=== PATIENT | male | born 1940 | race Caucasian/White ===

== ENCOUNTER 2016-10-07 08:51 | Day surgery (SDC) | payer MEDICARE, OTHER ==
[2016-10-05 10:50] VITALS: BMI 22.8
[~2016-10-07 08:51] MED LIST: HEPARIN SODIUM,PORCINE 5,000 UNIT/ML 1 ML VIAL SQ ONE; HYDROmorphone 1 MG/ML 1 ML SYRINGE IVP PRN; LACTATED RINGERS 1,000 ML IV SCH; MIDAZOLAM 2 MG/2 ML VIAL IV PRN; ONDANSETRON 4 MG/2 ML VIAL IVP ONE; ceFAZolin 2 GM in SODIUM CHLORIDE 0.9% 100 ML IVPB ONE
[2016-10-07] MEDS ORDERED: FAMOTIDINE 20 MG/2 ML VIAL IV STA (09:09)
[2016-10-07] MEDS ORDERED: LIDOCAINE 1% 20 ML VIAL (10MG/ML) FOR IV START INTRADERMA ONE (09:14)
[2016-10-07] MEDS ORDERED: PROPOFOL 10 MG/ML 20 ML VIAL IV ONE (09:35)
[2016-10-07] MEDS ORDERED: MIDAZOLAM 2 MG/2 ML VIAL ONE (09:35)
[2016-10-07] MEDS ORDERED: GLYCOPYRROLATE 0.2 MG/ML 2 ML VIAL ONE (09:35)
[2016-10-07] MEDS ORDERED: fentaNYL (PF) 50 MCG/ML 2 ML AMP ONE (09:35)
[2016-10-07] MEDS ORDERED: SUCCINYLCHOLINE CHLORIDE 100 MG/5 ML SYR IV ONE (09:35)
[2016-10-07] MEDS ORDERED: NEOSTIGMINE 1 MG/ML 10 ML VIAL ONE (09:35)
[2016-10-07] MEDS ORDERED: ROCURONIUM BROMIDE 10 MG/ML 10 ML VIAL IV ONE (09:35)
[2016-10-07] MEDS ORDERED: LIDOCAINE 1% INJ 10MG/ML (20 ML MDV) ONE (09:35)
[2016-10-07] MEDS ORDERED: ePHEDrine 50 MG/ML 1 ML AMP ONE (09:35)
[2016-10-07] MEDS ORDERED: BUPIVACAIN-EPI 0.25%-1:200,000 30 ML VIAL SQ ONE (09:59)
[2016-10-07 10:48] VITALS: TEMP 97.4
[2016-10-07] MEDS ORDERED: HYDROcodone/APAP 5-325MG 1 EACH TAB PO ONE (11:47)
[2016-10-07 12:24] VITALS: BP 134/70; PULSE 82; RESP 18
--- NOTE | 2016-10-07 18:15 | P.OP ---
Date of Procedure: 10/07/16 Preoperative Diagnosis: Symptomatic cholelithiasis History of right nephrectomy Bladder incontinence Postoperative Diagnosis: Same Procedure(s) Performed: Laparoscopic cholecystectomy Implants: NA Anesthesia: MOSHEA, local Surgeon: Yarelis Mann Estimated Blood Loss (ml): 5 Pathology: other Condition: stable Disposition: PACU Indications for Procedure: 76 years old male presents with intermittent episodes of right upper quadrant pain. Ultrasound showed stones versus sludge versus gallbladder polyps. Informed consent obtained and patient elected to undergo laparoscopic cholecystectomy possible open. The risks, benefits and potential complications including bleeding, infection, inadvertent bile duct injury were discussed and patient elected to undergo the procedure. Operative Findings: Omental adhesions along the right subcostal incision. Chronic cholecystitis. Description of Procedure: The patient was brought to the operating room and placed in supine position with both arms out. General anesthesia with endotracheal intubation was performed as per anesthesia team. Chlorhexidine was used to prep the abdomen followed by application of sterile drapes. A timeout was performed to verify correct patient and correct procedure. Patient was confirmed to receive perioperative IV antibiotics , heparin 5000 units subcutaneous injection and bilateral SCDs were placed. A 5 mm skin incision was made below the left costal margin at the anterior axillary line. A Veress needle was inserted and pneumoperitoneum was established to a pressure of 15 mmHg. A 5 mm Optiview trocar was loaded on a 5 mm 30 laparoscope and the peritoneal cavity was entered under direct vision using the Optiview technique. Additional 5 mm trocar was placed in the supraumbilical location and two 5 mm trocars along the right subcostal margin. The left 5 mm trocar was upsized to 10mm. The patient was placed in reverse Trendelenburg with right side up. There were omental dictations underneath the right subcostal incision which were taken down using a L-hook. The fundus of the gallbladder was grasped with an atraumatic grasper and was retracted over the dome of the liver. The infundibulum was grasped with an atraumatic grasper and retracted towards the pelvis to expose the Calot's triangle. Lateral and medial peritoneal attachment of the gallbladder bladder was dissected. Circumferential dissection was carried out around the cystic artery and the cystic duct to obtain adequate length for clip application. All the surrounding fibrofatty tissue were removed. Critical view was obtained with cystic duct and cystic artery as the only two structures entering the gallbladder. Two clips were applied on the patient's side and one on the specimen side on the cystic duct first followed by the cystic artery. Endoshears were used to divide the cystic duct and the cystic artery. The gallbladder was taken off the liver bed using a L-hook. It was placed in an endocatch specimen bag and removed through the 10mm port. The gallbladder was passed off as a specimen. The abdominal cavity was inspected. The clips on the cystic duct and cystic artery stump were intact and no bleeding noted from the liver bed. All the trocar sites were examined and no evidence of bleeding. The 10mm port site was closed with two transfascial sutures of 0 Vicryl using a Jorge Tawnya device. The pneumoperitoneum was evacuated and all the trocars were removed. Local anesthetic was infiltrated along the trocar sites and incisions were closed using 4-0 Monocryl followed by application of Dermabond skin glue. The sponge, instrument and needle count were correct x2. Patient was extubated and taken to post anesthesia care unit in stable condition.
== END 2016-10-07 13:12 | disposition home or self-care (01) ==
LOC: OR 08:51
PROVIDERS: ATTEND Surgery
DX: K81.1 Chronic cholecystitis (principal); I10 Essential (primary) hypertension; Z87.891 Personal history of nicotine dependence; Z90.5 Acquired absence of kidney; Z85.528 Personal history of other malignant neoplasm of kidney; Z79.1 Long term (current) use of non-steroidal anti-inflammatories (NSAID); Z79.899 Other long term (current) drug therapy
CPT/HCPCS: 88304; 47562; J2250; J1644; J2710; J0690; J2405; J2001; J3010; J0330; J2704

== ENCOUNTER 2017-05-30 13:07 | Emergency (ER) | payer MEDICARE, OTHER ==
[2017-05-30] MEDS ORDERED: SODIUM CHLORIDE 0.9% 1,000 ML IV STA (13:41)
[2017-05-30] MEDS ORDERED: HYDROmorphone 1 MG/ML 1 ML SYRINGE IVP STA (13:41)
[2017-05-30] MEDS ORDERED: PANTOPRAZOLE 40 MG/10 ML VIAL IVP STA (13:41)
[2017-05-30] MEDS ORDERED: ONDANSETRON 4 MG/2 ML VIAL IVP STA (13:41)
[2017-05-30] MEDS ORDERED: SODIUM CHLORIDE 0.9% 500 ML IV STA (13:41)
[2017-05-30] MEDS ORDERED: RX INFO: IV CONTRAST WAS GIVEN 1 EACH MISC MISCELLANE PRN (13:41)
--- NOTE | 2017-05-30 13:45 | ED ---
Abdominal Pain HPI - General Chief Complaint: Abdominal Pain Stated Complaint: Abd Pain Time Seen by Provider: 05/30/17 13:34 Source: patient, family Mode of arrival: wheelchair Limitations: no limitations - History of Present Illness Initial Comments: This 77-year-old white male presents with his nephew with the complaint of some abdominal pain. It is diffuse and moderately severe in nature and started approximately 1 hour prior to arrival. He denies any nausea, vomiting, diarrhea , or constipation. He denies any known fevers. He apparently has had some similar but much less severe symptoms intermittently over the past 2 weeks. This does not seem to correlate with food intake. He apparently does have a history of previous cholecystectomy in September of this year as well as a prior nephrectomy. No other complaints or modifying factors. - Related Data Home Medications Medication Instructions Recorded Confirmed Lisinopril-Hctz 20-12.5 mg 1 tab PO DAILY 05/07/15 05/30/17 [Zestoretic 20-12.5] Simvastatin [Zocor] 20 mg PO HS 05/07/15 05/30/17 Multivit-Min/FA/Lycopen/Lutein 1 tab PO DAILY 10/05/16 05/30/17 [Centrum Silver Tablet] Previous Rx's Medication Instructions Recorded Dicyclomine [Bentyl] 20 mg PO QID PRN #20 tablet 05/30/17 Allergies Allergy/AdvReac Type Severity Reaction Status Date / Time No Known Allergies Allergy Verified 05/30/17 14:57 Review of Systems ROS Statement: Those systems with pertinent positive or pertinent negative responses have been documented in the HPI. ROS Other: All systems not noted in ROS Statement are negative. Past Medical History Past Medical History: Cancer, Hypertension, Prostate Disorder Additional Past Medical History / Comment(s): hx bladder cancer, unexplained wt loss, gallstones, gout, hx kidney cancer, enlarged prostate History of Any Multi-Drug Resistant Organisms: None Reported Past Surgical History: Cholecystectomy Additional Past Surgical History / Comment(s): rt nephrectomy, cystoscopy Past Anesthesia/Blood Transfusion Reactions: No Reported Reaction Past Psychological History: Anxiety Smoking Status: Former smoker Past Alcohol Use History: Daily Past Drug Use History: None Reported - Past Family History Brother(s) Family Medical History: Cancer General Exam - General Exam Comments Initial Comments: GENERAL: The patient is well nourished and well hydrated. VITAL SIGNS: Heart rate, blood pressure, respiratory rate reviewed as recorded in nurse's notes. EYES: Pupils are round and reactive. Extraocular movements are intact. No conjunctival / lid redness or swelling. ENT: No external evidence of injury, swelling, or ecchymosis. Airway is patent. Throat is clear. NECK: Nontender. No swelling or evidence of injury. No subcutaneous emphysema. Trachea is midline. No thyroid mass. HEART: Regular rate and rhythm. Good peripheral pulses. LUNGS/CHEST: Breath sounds clear and equal bilaterally. No rales, rhonchi, or wheezes. No ecchymosis, subcutaneous emphysema, or tenderness. ABDOMEN: There is some mild diffuse abdominal tenderness. No palpable masses or organomegaly. No peritoneal signs. No abdominal wall swelling or ecchymosis. EXTREMITIES: No extremity tenderness. Normal muscle tone and function. No thoracolumbar tenderness. NEUROLOGIC: Sensation is grossly intact. Cranial nerve exam reveals face is symmetrical, tongue is midline, speech is clear. SKIN: No abrasions or ecchymosis is noted. No induration or masses noted. PSYCHIATRIC: Alert and oriented. Appears slightly anxious. Limitations: no limitations Course Vital Signs 05/30/17 05/30/17 05/30/17 13:16 14:56 16:00 Temperature 96.9 F L Pulse Rate 95 64 63 Respiratory 16 18 16 Rate Blood Pressure 131/68 138/65 124/72 O2 Sat by Pulse 99 96 98 Oximetry Medical Decision Making - Medical Decision Making The patient was seen and examined. All diagnostics were reviewed. An IV is established and he receives Dilaudid, Zofran, and Protonix intravenously. The EKG shows a normal sinus rhythm at a rate of 71. There is no acute ST-T wave changes identified. The [place] interval is 160, QRS duration is 78, and the QTc interval is 423. The laboratory shows some mild renal insufficiency but the patient has had previous nephrectomy. The computed tomography scan was therefore done without contrast and this does show some prostatic hypertrophy but otherwise no acute process is noted. His abdominal pain is completely resolved with 0.5 mg of Dilaudid and on recheck he is nontender. He states that he feels much improved. The exact cause of his symptoms are not definitively determined. Nevertheless, it is felt as though he is stable for discharge home. He has an appointment with his doctor tomorrow. - Lab Data Result diagrams: 05/30/17 14:05 05/30/17 14:05 Lab Results 05/30/17 05/30/17 05/30/17 Range/Units 14: 14: 14:05 WBC 7.8 (3.8-10.6) k/uL RBC 4.99 (4.30-5.90) m/uL Hgb 15.5 (13.0-17.5) gm/dL Hct 43.7 (39.0-53.0) % MCV 87.5 (80.0-100.0) fL MCH 31.1 (25.0-35.0) pg MCHC 35.6 (31.0-37.0) g/dL RDW 12.3 (11.5-15.5) % Plt Count 250 (150-450) k/uL Neutrophils % 71 % Lymphocytes % 17 % Monocytes % 6 % Eosinophils % 3 % Basophils % 1 % Neutrophils # 5.5 (1.3-7.7) k/uL Lymphocytes # 1.3 (1.0-4.8) k/uL Monocytes # 0.5 (0-1.0) k/uL Eosinophils # 0.2 (0-0.7) k/uL Basophils # 0.1 (0-0.2) k/uL PT 10.9 (9.0-12.0) sec INR 1.1 (<1.2) APTT 25.2 (22.0-30.0) sec Sodium 134 L (137-145) mmol/L Potassium 4.3 (3.5-5.1) mmol/L Chloride 99 (98-107) mmol/L Carbon Dioxide 23 (22-30) mmol/L Anion Gap 12 mmol/L BUN 20 (9-20) mg/dL Creatinine 1.30 H (0.66-1.25) mg/dL Est GFR (MDRD) Af Amer >60 (>60 ml/min/1.73 sqM) Est GFR (MDRD) Non-Af 54 (>60 ml/min/1.73 sqM) Glucose 92 (74-99) mg/dL Plasma Lactic Acid Michael (0.7-2.0) mmol/L Calcium 9.3 (8.4-10.2) mg/dL Total Bilirubin 1.4 H (0.2-1.3) mg/dL AST 21 (17-59) U/L ALT 29 (21-72) U/L Alkaline Phosphatase 54 (38-126) U/L Total Protein 6.7 (6.3-8.2) g/dL Albumin 4.4 (3.5-5.0) g/dL Amylase 65 (30-110) U/L Lipase 167 (23-300) U/L Urine Color Urine Appearance (Clear) Urine pH (5.0-8.0) Ur Specific [place] (1.001-1.035) Urine Protein (Negative) Urine Glucose (UA) (Negative) Urine Ketones (Negative) Urine Blood (Negative) Urine Nitrite (Negative) Urine Bilirubin (Negative) Urine Urobilinogen (<2.0) mg/dL Ur Leukocyte Esterase (Negative) Urine RBC (0-5) /hpf Urine WBC (0-5) /hpf Urine Mucus (None) /hpf 05/30/17 05/30/17 Range/Units 14:05 14:05 WBC (3.8-10.6) k/uL RBC (4.30-5.90) m/uL Hgb (13.0-17.5) gm/dL Hct (39.0-53.0) % MCV (80.0-100.0) fL MCH (25.0-35.0) pg MCHC (31.0-37.0) g/dL RDW (11.5-15.5) % Plt Count (150-450) k/uL Neutrophils % % Lymphocytes % % Monocytes % % Eosinophils % % Basophils % % Neutrophils # (1.3-7.7) k/uL Lymphocytes # (1.0-4.8) k/uL Monocytes # (0-1.0) k/uL Eosinophils # (0-0.7) k/uL Basophils # (0-0.2) k/uL PT (9.0-12.0) sec INR (<1.2) APTT (22.0-30.0) sec Sodium (137-145) mmol/L Potassium (3.5-5.1) mmol/L Chloride (98-107) mmol/L Carbon Dioxide (22-30) mmol/L Anion Gap mmol/L BUN (9-20) mg/dL Creatinine (0.66-1.25) mg/dL Est GFR (MDRD) Af Amer (>60 ml/min/1.73 sqM) Est GFR (MDRD) Non-Af (>60 ml/min/1.73 sqM) Glucose (74-99) mg/dL Plasma Lactic Acid Michael 1.4 (0.7-2.0) mmol/L Calcium (8.4-10.2) mg/dL Total Bilirubin (0.2-1.3) mg/dL AST (17-59) U/L ALT (21-72) U/L Alkaline Phosphatase (38-126) U/L Total Protein (6.3-8.2) g/dL Albumin (3.5-5.0) g/dL Amylase (30-110) U/L Lipase (23-300) U/L Urine Color Yellow Urine Appearance Clear (Clear) Urine pH 5.5 (5.0-8.0) Ur Specific [place] 1.009 (1.001-1.035) Urine Protein Negative (Negative) Urine Glucose (UA) Negative (Negative) Urine Ketones 1+ H (Negative) Urine Blood Negative (Negative) Urine Nitrite Negative (Negative) Urine Bilirubin Negative (Negative) Urine Urobilinogen <2.0 (<2.0) mg/dL Ur Leukocyte Esterase Trace H (Negative) Urine RBC 1 (0-5) /hpf Urine WBC 3 (0-5) /hpf Urine Mucus Rare H (None) /hpf Disposition Clinical Impression: Abdominal pain, Prostatic hypertrophy, Renal insufficiency Disposition: HOME SELF-CARE Condition: Good Instructions: Abdominal Pain (ED), Benign Prostatic Hypertrophy (ED) Prescriptions: Dicyclomine [Bentyl] 20 mg PO QID PRN #20 tablet PRN Reason: Pain Referrals: Forrest Edmondson MD [Primary Care Provider] - 1-2 days Time of Disposition: 17:03
[2017-05-30 14:41] LABS: Appearance,Urine Clear (Clear); Bilirubin,Urine Negative (Negative); Glucose,Urine (UA) Negative (Negative); Ketones,Urine 1+ (Negative); Leukocyte Esterase,Urine Trace (Negative); Mucus,Urine Rare /hpf; Nitrite,Urine Negative (Negative); PH, Urine 5.5 (5.0-8.0); Particle Count 1226; Protein,Urine Negative (Negative); RBC,Urine 1 /hpf (0-5); Specific Gravity,Urine 1.009 (1.001-1.035); UA Billing (MACRO vs. MICRO) MICRO; Urobilinogen,Urine <2.0 mg/dL (<2.0); WBC,Urine 3 /hpf (0-5)
[2017-05-30 14:45] LABS: ALT 29 U/L (21-72); AST 21 U/L (17-59); Alkaline Phosphatase 54 U/L (38-126); Amylase 65 U/L (30-110); Anion Gap 12 mmol/L; Blood Urea Nitrogen 20 mg/dL (9-20); Calcium 9.3 mg/dL (8.4-10.2); Carbon Dioxide 23 mmol/L (22-30); Chloride 99 mmol/L (98-107); Glucose 92 mg/dL (74-99); Non-African American GFR(MDRD) 54 (>60 ml/min/1.73 sqM); Potassium 4.3 mmol/L (3.5-5.1); Sodium 134 mmol/L (137-145); Total Bilirubin 1.4 mg/dL (0.2-1.3); Total Protein 6.7 g/dL (6.3-8.2)
[2017-05-30 14:46] LABS: Basophils # (A) 0.1 k/uL (0-0.2); Basophils % (A) 1 %; CH 31.1; CHCM 35.6; Eosinophils # (A) 0.2 k/uL (0-0.7); Eosinophils % (A) 3 %; HCT 43.7 % (39.0-53.0); HDW 2.46; HGB 15.5 gm/dL (13.0-17.5); Luc # (Auto) 0.26; Luc % (Auto) 3; Lymphocytes # (A) 1.3 k/uL (1.0-4.8); Lymphocytes % (A) 17 %; MCH 31.1 pg (25.0-35.0); MCHC 35.6 g/dL (31.0-37.0); MCV 87.5 fL (80.0-100.0); Mean Platelet Volume 7.2; Monocytes # (A) 0.5 k/uL (0-1.0); Monocytes % (A) 6 %; Neutrophils # (A) 5.5 k/uL (1.3-7.7); Neutrophils % (A) 71 %; RBC 4.99 m/uL (4.30-5.90); RDW 12.3 % (11.5-15.5); WBC 7.8 k/uL (3.8-10.6); WBC (Perox) 7.62
[2017-05-30 14:49] LABS: Partial Thromboplastin Time 25.2 sec (22.0-30.0)
[2017-05-30 14:51] LABS: INR 1.1 (<1.2); Prothrombin Time 10.9 sec (9.0-12.0)
--- NOTE | 2017-05-30 15:58 | CT ---
EXAMINATION TYPE: CT abdomen pelvis wo con DATE OF EXAM: 05/30/2017 COMPARISON: NONE INDICATION: Patient complains of generalized abdominal pain x3 hours. DLP: 639 mGycm, Automated exposure control for dose reduction was used. CONTRAST: No IV Study performed without Oral Contrast TECHNIQUE: Axial images were obtained from above the diaphragm to the pubic rami in the axial plane a t 5 mm thick sections. Reconstructed images are reviewed on the computer in the coronal plane. FINDINGS: Limited CT sections are obtained the lung bases. The lung bases are clear. CT ABDOMEN: Liver: Normal Spleen: Normal Pancreas: Normal Adrenal glands: The adrenal glands are normal. Gallbladder: Surgically absent Kidneys: Right kidney is surgically absent. No suspicious recurrent masses are evident within this re gion.. Left kidney: No hydronephrosis is present. There is a 1.2 cm cyst on the posterior superior left ki dney measuring 3 Hounsfield units. Some ill-defined hypodensity is at the inferior pole posteriorly a t the left kidney Aorta: Vascular calcification is within the aorta. Inferior vena cava: Normal. CT PELVIS: Loops of bowel within the abdomen and pelvis are normal. Study is without oral contrast limiting the evaluation. Appendix: Not identified. Urinary bladder: Normal. Prostate is impression on the inferior aspect of the urinary bladder Genitourinary structures: Prostate is markedly enlarged and contains calcification. Osseous structures: No suspicious lytic or sclerotic lesions. Sclerotic lesions are within the medial right iliac wing, the anterior L4 level. IMPRESSIONS: 1. Absent right kidney. 2. Marked prominence prostate.
[2017-05-30 17:21] VITALS: BP 125/80; PULSE 73; RESP 18; TEMP 97.3
== END 2017-05-30 17:20 | disposition home or self-care (01) ==
LOC: EC 13:07
DX: N40.0 Benign prostatic hyperplasia without lower urinary tract symptoms (principal); N28.9 Disorder of kidney and ureter, unspecified; I10 Essential (primary) hypertension; Z85.528 Personal history of other malignant neoplasm of kidney; Z90.49 Acquired absence of other specified parts of digestive tract; Z90.5 Acquired absence of kidney; Z79.899 Other long term (current) drug therapy; Z87.891 Personal history of nicotine dependence
CPT/HCPCS: 99284; 96374; 96375 ×2; 96361 ×3; 36415; 93005; 80053; 82150; 83605; 83690; 85025; 85610; 85730; 81001; 74176; J2405; J1170; C9113

== ENCOUNTER → 2018-04-02 | Outpatient (CLI) | payer MEDICARE ==
--- NOTE | 2018-04-02 19:24 | ECHOS ---
STRESS ECHOCARDIOGRAM DATE OF SERVICE: 04/02/[address] Edmondson. INDICATIONS: Chest pain. MEDICATIONS: See list. BASELINE HEART RATE: 75 BASELINE BLOOD PRESSURE: 124/80 MAXIMUM HEART RATE: 101 MAXIMUM BLOOD PRESSURE: 124/80 85% MPHR: 121 100% MPHR: 142 METS: 2.0 MAXIMUM STAGE REACHED: I TOTAL EXERCISE TIME: 2:30 CLINICAL INFORMATION: Baseline heart rate 75 beats per minute. Baseline blood pressure 124/80 mmHg. Baseline 12-lead ECG shows normal sinus rhythm with normal cardiac intervals. Patient exercised on a Darinel protocol for 2 minutes 30 seconds achieving a peak heart rate of 101 beats per minute. There was no ECG evidence for ischemia. No arrhythmias were noted. Baseline 2D echo images showed normal LV size and systolic function without segmental wall motion abnormalities. At peak exercise, there was excellent augmentation of overall LV contractility without developing any wall motion abnormalities. At recovery, no regional wall motion abnormalities were noted. PVCs were noted at recovery. IMPRESSION: Limited exercise capacity. No ECG evidence for ischemia based upon the ECG and echo images at this low workload level. Occasional PVCs noted. MMODL / IJN: [id number] /
== END | disposition home or self-care (01) ==
LOC: RADNMMAIN 08:56
PROVIDERS: ATTEND Family Medicine
DX: R07.9 Chest pain, unspecified (principal)
CPT/HCPCS: 93351

== ENCOUNTER 2018-04-21 07:50 | Emergency (ER) | payer MEDICARE, OTHER ==
[2018-04-21] MEDS ORDERED: methylPREDNISolone SOD SUCCI 125 MG/2 ML VIAL IV STA (08:34)
[2018-04-21] MEDS ORDERED: diphenhydrAMINE 50 MG/ML 1 ML VIAL IVP STA (08:35)
--- NOTE | 2018-04-21 09:05 | ED ---
ENT HPI - General Chief complaint: Dental/Oral Stated complaint: Facial Swelling Time Seen by Provider: 04/21/18 08:22 Source: patient, RN notes reviewed, old records reviewed Mode of arrival: ambulatory Limitations: no limitations - History of Present Illness Initial comments: This Patient is a 70-year-old male with chief complaint of upper lip and right cheek swelling this morning. Patient reports that he has no specific dental pain. Denies any new dental caries or abscesses Sorenson teeth. Patient states that he has been on lisinopril for many years. He does have history of one kidney. Patient also complains of pain and swelling into the left foot, ankle and great toe. He does have a history of gout. He did see his PCP on and was told it is most likely due to increased salt intake. He is currently maintained on [place] for gout treatment. Patient denies any recent fever, chills, shortness of breath, chest pain, back pain, abdominal pain, nausea vomiting, numbness or tingling, dysuria or hematuria, constipation or diarrhea, headaches or visual changes, or any other current symptoms - Related Data Home Medications Medication Instructions Recorded Confirmed Lisinopril-Hctz 20-12.5 mg 1 tab PO DAILY 05/07/15 05/30/17 [Zestoretic 20-12.5] Simvastatin [Zocor] 20 mg PO HS 05/07/15 05/30/17 Multivit-Min/FA/Lycopen/Lutein 1 tab PO DAILY 10/05/16 05/30/17 [Centrum Silver Tablet] Previous Rx's Medication Instructions Recorded Dicyclomine [Bentyl] 20 mg PO QID PRN #20 tablet 05/30/17 Ibuprofen 400 mg PO TID #15 tablet 04/21/18 methylPREDNISolone Dose Pack 4 mg PO DIRECTED #21 package 04/21/18 [Medrol Dose Pack] Allergies Allergy/AdvReac Type Severity Reaction Status Date / Time No Known Allergies Allergy Verified 04/21/18 08:08 Review of Systems ROS Statement: Those systems with pertinent positive or pertinent negative responses have been documented in the HPI. ROS Other: All systems not noted in ROS Statement are negative. Past Medical History Past Medical History: Cancer, Hypertension, Prostate Disorder Additional Past Medical History / Comment(s): hx bladder cancer, unexplained wt loss, gallstones, gout, hx kidney cancer, enlarged prostate History of Any Multi-Drug Resistant Organisms: None Reported Past Surgical History: Cholecystectomy Additional Past Surgical History / Comment(s): rt nephrectomy, cystoscopy Past Anesthesia/Blood Transfusion Reactions: No Reported Reaction Past Psychological History: Anxiety Smoking Status: Former smoker Past Alcohol Use History: Daily Past Drug Use History: None Reported - Past Family History Brother(s) Family Medical History: Cancer General Exam - General Exam Comments Initial Comments: 78-year-old male. Alert and oriented. No significant distress. Limitations: no limitations General appearance: alert, in no apparent distress Head exam: Present: atraumatic, normocephalic, normal inspection Eye exam: Present: normal appearance, PERRL, EOMI. Absent: scleral icterus, conjunctival injection, periorbital swelling ENT exam: Present: normal oropharynx, mucous membranes moist, TM's normal bilaterally. Absent: normal exam (Patient does have swelling over the upper lip and the left cheek, Patient has no difficulty breathing. No uvula swelling or tongue swelling.) Neck exam: Present: normal inspection. Absent: tenderness, meningismus, lymphadenopathy Respiratory exam: Present: normal lung sounds bilaterally. Absent: respiratory distress, wheezes, rales, rhonchi, stridor Cardiovascular Exam: Present: regular rate, normal rhythm, normal heart sounds. Absent: systolic murmur, diastolic murmur, rubs, gallop, clicks GI/Abdominal exam: Present: soft, normal bowel sounds. Absent: distended, tenderness, guarding, rebound, rigid Extremities exam: Present: normal inspection, full ROM, normal capillary refill. Absent: tenderness, pedal edema, joint swelling, calf tenderness Left Lower Leg exam: Present: normal inspection, full ROM Ankle exam: Present: tenderness, swelling (Patient does have some tenderness and swelling over the left ankle. Warm to touch.). Absent: normal inspection Foot/Toe exam: Present: tenderness, swelling, erythema (Great toe). Absent: normal inspection (Patient has erythematous left great toe. Pain with passive range of motion. Unable to touch the foot without severe pain.), full ROM Neurovascular tendon exam: Present: no vascular compromise Gait: observed and limited by pain Back exam: Present: normal inspection Neurological exam: Present: alert, oriented X3, CN II-XII intact Psychiatric exam: Present: normal affect, normal mood Skin exam: Present: warm, dry, intact, normal color. Absent: rash Course Vital Signs 04/21/18 04/21/18 08:06 09:49 Temperature 98.1 F 97.1 F L Pulse Rate 60 73 Respiratory 20 18 Rate Blood Pressure 114/76 131/89 O2 Sat by Pulse 99 98 Oximetry - Reevaluation(s) Reevaluation #1: 04/21/18 10:50 She was evaluated in the swelling of the upper lip is going down. Patient has no evidence of swelling of the throat, uvula or tongue. Patient is breathing without difficulty. Patient's family is anxious for discharge. I discussed the Patient needs to be monitored. If there is any worsening swelling of the tongue or face he needs return to emergency department for likely admission. Medical Decision Making - Medical Decision Making This Patient is a 70-year-old male with chief complaint of upper lip and right cheek swelling this morning. Patient reports that he has no specific dental pain. Denies any new dental caries or abscesses Sorenson teeth. Patient states that he has been on lisinopril for many years. He does have history of one kidney. Patient also complains of pain and swelling into the left foot, ankle and great toe. He does have a history of gout. Patient lab work obtained , and given IV solumedrol. I beleive patient lip swelling is likely angioedema related to lisinopril use. Patient has pain and erythema to left great toe consistent with gout. At this time Xray is negative for any acute process. At this time discussed with chronic changes in BUN and CR, to limit NSAID use. Discussed a short course of ibupropfen and medrol dose pack. Steriods can help with angioedema as well. He was monitored for 3 hours, and has no significant tongue swelling and discussed patient can be discharged with monitoring. Nephew agrees to monitor. Discussed PCP follow up, DON lisinopril. Return parameters discussed. - Lab Data Result diagrams: 04/21/18 08:45 04/21/18 08:45 Lab Results 04/21/18 04/21/18 Range/Units 08:45 08:45 WBC 7.2 (3.8-10.6) k/uL RBC 4.26 L (4.30-5.90) m/uL Hgb 12.6 L (13.0-17.5) gm/dL Hct 37.5 L (39.0-53.0) % MCV 88.0 (80.0-100.0) fL MCH 29.6 (25.0-35.0) pg MCHC 33.6 (31.0-37.0) g/dL RDW 12.3 (11.5-15.5) % Plt Count 278 (150-450) k/uL Neutrophils % 80 % Lymphocytes % 8 % Monocytes % 7 % Eosinophils % 2 % Basophils % 0 % Neutrophils # 5.8 (1.3-7.7) k/uL Lymphocytes # 0.6 L (1.0-4.8) k/uL Monocytes # 0.5 (0-1.0) k/uL Eosinophils # 0.2 (0-0.7) k/uL Basophils # 0.0 (0-0.2) k/uL Sodium 131 L (137-145) mmol/L Potassium 4.1 (3.5-5.1) mmol/L Chloride 95 L (98-107) mmol/L Carbon Dioxide 25 (22-30) mmol/L Anion Gap 11 mmol/L BUN 21 H (9-20) mg/dL Creatinine 1.31 H (0.66-1.25) mg/dL Est GFR (CKD-EPI)AfAm 60 (>60 ml/min/1.73 sqM) Est GFR (CKD-EPI)NonAf 52 (>60 ml/min/1.73 sqM) Glucose 92 (74-99) mg/dL Uric Acid 4.4 (3.5-8.5) mg/dL Calcium 8.5 (8.4-10.2) mg/dL Total Bilirubin 0.6 (0.2-1.3) mg/dL AST 19 (17-59) U/L ALT 27 (21-72) U/L Alkaline Phosphatase 69 (38-126) U/L C-Reactive Protein 45.0 H (<10.0) mg/L Total Protein 6.0 L (6.3-8.2) g/dL Albumin 3.6 (3.5-5.0) g/dL - Radiology Data Radiology results: report reviewed No acute osseous lesion. Small erosion in distal aspect of first metatarsal. Ankle xray is negative for any acute process. Disposition Clinical Impression: Gout, Angioedema, Adverse effect of lisinopril Disposition: HOME SELF-CARE Condition: Good Instructions: Gout (ED), Angioedema (ED) Additional Instructions: Patient has a deep the foot up and elevated. Follow-up with primary care provider on Monday. If the swelling of the foot over the tongue and lip gets worse return to emergency department. Return to emergency department if there is any further concerns. Prescriptions: Ibuprofen 400 mg PO TID #15 tablet methylPREDNISolone Dose Pack [Medrol Dose Pack] 4 mg PO DIRECTED #21 package Is patient prescribed a controlled substance at d/c from ED?: No Referrals: Forrest Edmondson MD [Primary Care Provider] - 1-2 days
[2018-04-21 09:06] LABS: Basophils % (A) 0 %; Eosinophils # (A) 0.2 k/uL (0-0.7); Eosinophils % (A) 2 %; HCT 37.5 % (39.0-53.0); HGB 12.6 gm/dL (13.0-17.5); Lymphocytes # (A) 0.6 k/uL (1.0-4.8); Lymphocytes % (A) 8 %; MCH 29.6 pg (25.0-35.0); MCHC 33.6 g/dL (31.0-37.0); Monocytes # (A) 0.5 k/uL (0-1.0); Monocytes % (A) 7 %; Neutrophils # (A) 5.8 k/uL (1.3-7.7); Neutrophils % (A) 80 %; Platelet Count 278 k/uL (150-450); RBC 4.26 m/uL (4.30-5.90); RDW 12.3 % (11.5-15.5); WBC 7.2 k/uL (3.8-10.6)
[2018-04-21 09:16] LABS: Albumin 3.6 g/dL (3.5-5.0); Calcium 8.5 mg/dL (8.4-10.2); Potassium 4.1 mmol/L (3.5-5.1); Total Bilirubin 0.6 mg/dL (0.2-1.3); Uric Acid 4.4 mg/dL (3.5-8.5)
--- NOTE | 2018-04-21 09:25 | XR ---
EXAMINATION TYPE: XR ankle complete LT , 3 VIEWS DATE OF EXAM ORDERED: 04/21/2018 HISTORY: Pain. COMPARISON: None. FINDINGS: No fracture, dislocation or ankle joint effusion is seen. IMPRESSION: NO ACUTE OSSEOUS LESION.
--- NOTE | 2018-04-21 09:27 | XR ---
EXAMINATION TYPE: XR foot complete LT , 3 VIEWS DATE OF EXAM ORDERED: 04/21/2018 HISTORY: Pain. COMPARISON: None. FINDINGS: There is a small osseous erosion on the medial aspect of the distal first metatarsal. No d efinite gouty tophus is seen. No fracture or dislocation is seen. IMPRESSION: 1. NO ACUTE OSSEOUS LESION. 2. SMALL EROSION INVOLVING THE DISTAL ASPECT OF THE FIRST METATARSAL.
[2018-04-21 09:50] VITALS: BP 131/89; PULSE 73; RESP 18; TEMP 97.1
== END 2018-04-21 10:59 | disposition home or self-care (01) ==
LOC: EC 07:50
DX: T78.3XXA Angioneurotic edema, initial encounter (principal); T46.4X5A Adverse effect of angiotensin-converting-enzyme inhibitors, initial encounter; M10.9 Gout, unspecified; M85.872 Other specified disorders of bone density and structure, left ankle and foot; I10 Essential (primary) hypertension; Z87.891 Personal history of nicotine dependence; Z79.899 Other long term (current) drug therapy; Z85.528 Personal history of other malignant neoplasm of kidney; Z90.5 Acquired absence of kidney
CPT/HCPCS: 36415; 80053; 84550; 85025; 86140; 73610; 73630; 99284; 96374; 96375; J1200; J2930

== ENCOUNTER → 2018-07-05 | Outpatient (CLI) | payer MEDICARE ==
--- NOTE | 2018-07-05 09:09 | CT ---
EXAMINATION TYPE: CT brain wo/w con DATE OF EXAM: 07/05/2018 COMPARISON: 09/05/2015 HISTORY: dementia CT DLP: 2300 mGycm Automated Exposure Control for Dose Reduction was Utilized. TECHNIQUE: CT scan of the head is performed with IV contrast.,CT scan of the head is performed withou t and with without and with IV Contrast, patient injected with 80 mL of Isovue 300. FINDINGS: Noncontrast images show no acute intracranial hemorrhage or midline shift. There is diffu se ventricular and sulcal prominence consistent with diffuse age-related cerebral and cerebellar atro phy. There is low-attenuation in the periventricular white matter consistent with chronic small vesse l ischemic change. The globes are intact and the visualized sinuses are clear. No suspicious extra- axial fluid collection. Postcontrast images show no suspicious enhancing intraparenchymal mass. Promi nent perivascular spaces are seen at the level inferior basal ganglia. Numerous superficial scalp corbin cifications are again identified. The globes are intact and the visualized sinuses are clear. IMPRESSION: 1. No acute intracranial hemorrhage, midline shift or mass effect. No abnormal intracranial enhanceme nt or evidence of intracranial mass. 2. Moderate symmetric cerebral and cerebellar atrophy. 3. Mild burden nonspecific white matter change, likely on the basis of chronic microangiopathy.
== END ==
LOC: RADCTMAIN 07:17
PROVIDERS: ATTEND Family Medicine
DX: G31.9 Degenerative disease of nervous system, unspecified (principal); R90.89 Other abnormal findings on diagnostic imaging of central nervous system
CPT/HCPCS: 82565; 84520; 70470; 36415; Q9967

== ENCOUNTER → 2018-07-25 | Outpatient (CLI) | payer MEDICARE ==
[2018-07-25 18:48] LABS: T4, Free (Free Thyroxine) 0.8 ng/dL (0.80-1.80)
== END ==
LOC: LABWHC1 11:30
PROVIDERS: ATTEND Psychiatry & Neurology Neurology
DX: F03.90 Unspecified dementia, unspecified severity, without behavioral disturbance, psychotic disturbance, mood disturbance, and anxiety (principal)
CPT/HCPCS: 36415; 82565; 82607; 84439; 84443; 84450; 84460; 84481; 84520

== ENCOUNTER 2022-12-12 14:56 | Inpatient (IN) | payer MEDICARE, OTHER ==
--- NOTE | 2022-12-12 15:41 | ED ---
General Adult HPI - General Source: patient Mode of arrival: wheelchair Limitations: altered mental status <Ellen Link - Last Filed: 12/12/22 15:40> <Eugenio Wan - Last Filed: 12/12/22 19:59> - General Chief complaint: Extremity Problem,Nontraumatic Stated complaint: bilat leg edema - History of Present Illness Initial comments: 82-year-old male presents to the emergency department for bilateral leg swelling and chronic leg wound. Patient was sent here by his PCP. Patient denies any shortness of breath or cough. (Ellen Link) This 82-year-old male presents with son with a complaint of some swelling to his bilateral lower extremities. He apparently developed this over the past 2 weeks. He also developed some erythema. Son does relate a 20 pound weight gain recently as well. The patient is demented so most history is obtained per son. The patient was transferred to an adult foster care apartment just one month ago previous to this the son and [id number] who are taking care of him. There has been no known fever. There is been no difficulty in breathing or chest pain. Family denies any history of congestive heart failure. The adult foster care physician apparently did evaluate the patient and recommended an ultrasound of lower extremities. This Doppler ultrasound today was completed and purportedly negative per the son per the copy room technician. He does not have any history of DVT or PE. No other complaints or modifying factors. The son also does relate the patient only has one kidney. 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 Forrest several years ago. (Eugenio Wan) - Related Data Home Medications Medication Instructions Recorded Confirmed Simvastatin [Zocor] 20 mg PO DAILY@0800 05/07/15 12/12/22 Cholecalciferol [Vitamin D3 (25 50 mcg PO DAILY 12/12/22 12/12/22 Mcg = 1000 Iu)] Citalopram Hydrobromide [CeleXA] 20 mg PO DAILY@79912/12/22 12/12/22 Cyanocobalamin (Vitamin B-12) 1,000 mcg PO DAILY@0800 12/12/22 12/12/22 [Vitamin B-12] Donepezil [Aricept] 20 mg PO DAILY@0812/12/22 12/12/22 Doxycycline Hyclate 100 mg PO BID@0800,199912/12/22 12/12/22 Furosemide [Lasix] 20 mg PO DAILY@0800 12/12/22 12/12/22 Levothyroxine Sodium [Synthroid] 12.5 mcg PO DAILY@0800 12/12/22 12/12/22 Melatonin 5 mg PO HS@199912/12/22 12/12/22 Nitroglycerin Sl Tabs [Nitrostat] 0.4 mg SUBLINGUAL Q5M PRN 12/12/22 12/12/22 Probenecid 500 mg PO BID@08,199912/12/22 12/12/22 Silver Sulfadiazine [SSD 1% Cream] 1 applic TOPICAL DAILY@79912/12/22 12/12/22 Allergies Allergy/AdvReac Type Severity Reaction Status Date / Time No Known Allergies Allergy Verified 12/12/22 19:26 Review of Systems ROS Other: All systems not noted in ROS Statement are negative. <Ellen Link - Last Filed: 12/12/22 15:40> ROS Other: All systems not noted in ROS Statement are negative. <Eugenio Wan - Last Filed: 12/12/22 19:59> ROS Statement: Those systems with pertinent positive or pertinent negative responses have been documented in the HPI. Past Medical History Past Medical History: Cancer, Hypertension, Prostate Disorder Additional Past Medical History / Comment(s): hx bladder cancer, unexplained wt loss, gallstones, gout, hx kidney cancer, enlarged prostate History of Any Multi-Drug Resistant Organisms: None Reported Past Surgical History: Cholecystectomy Additional Past Surgical History / Comment(s): rt nephrectomy, cystoscopy Past Anesthesia/Blood Transfusion Reactions: No Reported Reaction Past Psychological History: Anxiety Smoking Status: Never smoker Past Alcohol Use History: Daily Past Drug Use History: None Reported - Past Family History Brother(s) Family Medical History: Cancer <Ellen Link - Last Filed: 12/12/22 15:40> General Exam Limitations: altered mental status <Ellen Link - Last Filed: 12/12/22 15:40> <Eugenio Wan - Last Filed: 12/12/22 19:59> - General Exam Comments Initial Comments: Visual Physical Exam Vital signs reviewed General: Well-appearing, nontoxic, no acute distress. Head: Normocephalic, atraumatic Eyes: PERRLA, EOMI ENT: Airway patent Chest: Nonlabored breathing Skin: No visual rash, normal skin tone Neuro: Alert and oriented 3 Musculoskeletal: No gross abnormalities (Ellen Link) GENERAL: The patient is well nourished and well hydrated. VITAL SIGNS: Heart rate, blood pressure, respiratory rate reviewed as recorded in nurse's notes. EYES: Pupils are round and reactive. Extraocular movements are intact. No conjunctival / lid redness or swelling. ENT: No external evidence of injury, swelling, or ecchymosis. Airway is patent. Throat is clear. NECK: Nontender. No swelling or evidence of injury. No subcutaneous emphysema. Trachea is midline. No thyroid mass. HEART: Regular rate and rhythm. Good peripheral pulses. LUNGS/CHEST: Breath sounds clear and equal bilaterally. No rales, rhonchi, or wheezes. No ecchymosis, subcutaneous emphysema, or tenderness. ABDOMEN: Abdomen soft without tenderness. No palpable masses or organomegaly. No peritoneal signs. No abdominal wall swelling or ecchymosis. EXTREMITIES: Mild lower extremity tenderness from the down bilaterally. Normal muscle tone and function. No thoracolumbar tenderness. NEUROLOGIC: Sensation is grossly intact. Cranial nerve exam reveals face is symmetrical, tongue is midline, speech is clear. SKIN: Erythema noted to the bilateral lower extremities from the knee down with associated pitting edema. There is some excoriation of skin noted to the superior aspect of the right foot with occasional blister formation. PSYCHIATRIC: Alert and pleasant, demented. (Eugenio Wan) Course Vital Signs 12/12/22 12/12/22 15:06 18:15 Temperature 97.9 F Pulse Rate 64 78 Respiratory 22 18 Rate Blood Pressure 147/74 152/98 O2 Sat by Pulse 99 93 L Oximetry Medical Decision Making - Lab Data Result diagrams: 12/12/22 16:47 12/12/22 16:47 <Eugenio Wan - Last Filed: 12/12/22 19:59> - Medical Decision Making Was pt. sent in by a medical professional or institution (, PA, RECREATION THERAPY TEACHER, urgent care, hospital, or residential...) When possible be specific @ -The patient was sent in by Dr. Alvarenga. Did you speak to anyone other than the patient for history (EMS, parent, family, police, friend...)? What history was obtained from this source @ -The patient is demented. Much of the history is obtained per the son who is present. Additional history is obtained per old records. Did you review nursing and triage notes (agree or disagree)? Why? @ -[I reviewed and agree with nursing and triage notes] Were old charts reviewed (outside hosp., previous admission, EMS record, old EKG, old radiological studies, urgent care reports/EKG's, residential records)? Report findings @ -Old records were reviewed and additional past medical history is obtained. Differential Diagnosis (chest pain, altered mental status, abdominal pain women, abdominal pain men, vaginal bleeding, weakness, fever, dyspnea, syncope, headache, dizziness, GI bleed, back pain, seizure, CVA, palpatations, mental health, musculoskeletal)? @ -Congestive heart failure, peripheral edema, venous insufficiency, cellulitis, unilateral kidney, pneumonia EKG interpreted by me (3pts min.). @ -EKG is interpreted by myself and does show a normal sinus rhythm at a rate of [address] or T-wave changes. Intervals are normal. X-rays interpreted by me (1pt min.). @ -X-ray of the chest is interpreted by myself and does show possible infiltrate right lower lobe. The radiologist also read this as possible infiltrate and to clinically correlate. CT interpreted by me (1pt min.). @ -[None done] U/S interpreted by me (1pt. min.). @ -[None done] What testing was considered but not performed or refused? (CT, X-rays, U/S, labs)? Why? @ -[None] What meds were considered but not given or refused? Why? @ -[None] Did you discuss the management of the patient with other professionals (professionals i.e. , PA, RECREATION THERAPY TEACHER, lab, RT, psych nurse, social services counselor, pre algebra teacher, teacher, [employer] plans staff officer, welfare case worker)? Give summary @ -Case is discussed with internal medicine and they're agreeable with admission. Was smoking cessation discussed for >3mins.? @ -[No] Was critical care preformed (if so, how long)? @ -[No] Were there social determinants of health that impacted care today? How? (Homelessness, low income, unemployed, alcoholism, drug addiction, transportation, low edu. Level, literacy, decrease access to med. care, shelter, rehab)? @ -Social determinants that impacted healthcare today are that of patient's dementia and some decreased ability to give accurate history. Was there de-escalation of care discussed even if they declined (Discuss DNR or withdrawal of care, Hospice)? DNR status @ -[No] What co-morbidities impacted this encounter? (DM, HTN, Smoking, COPD, CAD, Cancer, CVA, ARF, Chemo, Hep., AIDS, mental health diagnosis, sleep apnea, morbid obesity)? @ -Comorbidities that impacted care included that of patient having a unilateral kidney. He does require diuresis due to his lower extremity edema but his creatinine also slightly elevated so judicious additional doses of Lasix should be given. Was patient admitted / discharged? Hospital course, mention meds given and route, prescriptions, significant lab abnormalities, going to OR and other pertinent info. @ -The patient was seen and examined. All diagnostics are reviewed. He does receive Lasix 60 mg intravenously initially and has good urine output. He also receives Unasyn for suspected lower extremity cellulitis. Laboratories reviewed and shows normal white blood cell count. The BNP is moderately elevated at 1200. The creatinine is slightly increased as compared to previous at 1.5. It is felt as though patient will require admission to the hospital for further diuresis and treatment of his lower extremity cellulitis. Case is discussed with internal medicine was also is agreeable. Undiagnosed new problem with uncertain prognosis? @ -[No] Drug Therapy requiring intensive monitoring for toxicity (Heparin, Nitro, Insulin, Cardizem)? @ -[No] Were any procedures done? @ -[No] Diagnosis/symptom? @ -Lower extremity edema, lower extremity cellulitis, dementia, renal insufficiency Acute, or Chronic, or Acute on Chronic? @ -Acute Uncomplicated (without systemic symptoms) or Complicated (systemic symptoms)? @ -Uncomplicated Side effects of treatment? @ -[No] Exacerbation, Progression, or Severe Exacerbation? @ -[No] Poses a threat to life or bodily function? How? (Chest pain, [place], [place], pneumonia, PE, COPD, DKA, ARF, appy, cholecystitis, CVA, Diverticulitis, Homicidal, Suicidal, threat to staff... and all critical care pts) @ -[No] (Eugenio Wan) - Lab Data Lab Results 12/12/22 12/12/22 12/12/22 Range/Units 16:47 16:47 16:47 WBC 7.5 (3.8-10.6) k/uL RBC 4.48 (4.30-5.90) m/uL Hgb 14.2 (13.0-17.5) gm/dL Hct 41.9 (39.0-53.0) % MCV 93.5 (80.0-100.0) fL MCH 31.8 (25.0-35.0) pg MCHC 34.0 (31.0-37.0) g/dL RDW 13.6 (11.5-15.5) % Plt Count 204 (150-450) k/uL MPV 8.4 Neutrophils % 77 % Lymphocytes % 7 % Monocytes % 8 % Eosinophils % 4 % Basophils % 1 % Neutrophils # 5.8 (1.3-7.7) k/uL Lymphocytes # 0.6 L (1.0-4.8) k/uL Monocytes # 0.6 (0-1.0) k/uL Eosinophils # 0.3 (0-0.7) k/uL Basophils # 0.1 (0-0.2) k/uL Sodium 138 (137-145) mmol/L Potassium 4.2 (3.5-5.1) mmol/L Chloride 104 (98-107) mmol/L Carbon Dioxide 27 (22-30) mmol/L Anion Gap 7 mmol/L BUN 23 H (9-20) mg/dL Creatinine 1.52 H (0.66-1.25) mg/dL Est GFR (CKD-EPI)AfAm 49 (>60 ml/min/1.73 sqM) Est GFR (CKD-EPI)NonAf 42 (>60 ml/min/1.73 sqM) Glucose 81 (74-99) mg/dL Calcium 8.3 L (8.4-10.2) mg/dL Total Bilirubin 0.4 (0.2-1.3) mg/dL AST 22 (17-59) U/L ALT 18 (4-49) U/L Alkaline Phosphatase 69 (38-126) U/L Troponin I <0.012 (0.000-0.034) ng/mL NT-Pro-B Natriuret Pep pg/mL Total Protein 6.5 (6.3-8.2) g/dL Albumin 3.8 (3.5-5.0) g/dL 12/12/22 Range/Units 16:47 WBC (3.8-10.6) k/uL RBC (4.30-5.90) m/uL Hgb (13.0-17.5) gm/dL Hct (39.0-53.0) % MCV (80.0-100.0) fL MCH (25.0-35.0) pg MCHC (31.0-37.0) g/dL RDW (11.5-15.5) % Plt Count (150-450) k/uL MPV Neutrophils % % Lymphocytes % % Monocytes % % Eosinophils % % Basophils % % Neutrophils # (1.3-7.7) k/uL Lymphocytes # (1.0-4.8) k/uL Monocytes # (0-1.0) k/uL Eosinophils # (0-0.7) k/uL Basophils # (0-0.2) k/uL Sodium (137-145) mmol/L Potassium (3.5-5.1) mmol/L Chloride (98-107) mmol/L Carbon Dioxide (22-30) mmol/L Anion Gap mmol/L BUN (9-20) mg/dL Creatinine (0.66-1.25) mg/dL Est GFR (CKD-EPI)AfAm (>60 ml/min/1.73 sqM) Est GFR (CKD-EPI)NonAf (>60 ml/min/1.73 sqM) Glucose (74-99) mg/dL Calcium (8.4-10.2) mg/dL Total Bilirubin (0.2-1.3) mg/dL AST (17-59) U/L ALT (4-49) U/L Alkaline Phosphatase (38-126) U/L Troponin I (0.000-0.034) ng/mL NT-Pro-B Natriuret Pep 1220 pg/mL Total Protein (6.3-8.2) g/dL Albumin (3.5-5.0) g/dL Disposition <Ellen Link - Last Filed: 12/12/22 15:40> Time of Disposition: 18:40 Decision Date: 12/12/22 Decision Time: 18:40 <Eugenio Wan - Last Filed: 12/12/22 19:59> Clinical Impression: Bilateral lower leg cellulitis, Lower extremity edema, Lung abnormality, History of renal carcinoma, Renal insufficiency, Elevated brain natriuretic peptide (BNP) level, Weight gain Disposition: ADMITTED IP TO THIS [facility] Condition: Fair
[2022-12-12 16:57] LABS: Basophils # (A) 0.1 k/uL (0-0.2); Basophils % (A) 1 %; Eosinophils # (A) 0.3 k/uL (0-0.7); Eosinophils % (A) 4 %; HCT 41.9 % (39.0-53.0); HGB 14.2 gm/dL (13.0-17.5); Lymphocytes # (A) 0.6 k/uL (1.0-4.8); Lymphocytes % (A) 7 %; MCH 31.8 pg (25.0-35.0); MCV 93.5 fL (80.0-100.0); Mean Platelet Volume 8.4; Monocytes # (A) 0.6 k/uL (0-1.0); Monocytes % (A) 8 %; Neutrophils # (A) 5.8 k/uL (1.3-7.7); Neutrophils % (A) 77 %; Platelet Count 204 k/uL (150-450); RBC 4.48 m/uL (4.30-5.90); RDW 13.6 % (11.5-15.5); WBC 7.5 k/uL (3.8-10.6)
[2022-12-12 17:14] LABS: Albumin 3.8 g/dL (3.5-5.0); Calcium 8.3 mg/dL (8.4-10.2); Potassium 4.2 mmol/L (3.5-5.1); Total Bilirubin 0.4 mg/dL (0.2-1.3); Total Protein 6.5 g/dL (6.3-8.2)
[2022-12-12] MEDS ORDERED: FUROSEMIDE 10 MG/ML 10 ML VIAL IV STA (17:14)
--- NOTE | 2022-12-12 17:55 | XR ---
EXAMINATION TYPE: XR chest 2V DATE OF EXAM: 12/12/2022 5:03 PM COMPARISON: Chest radiographs from 09/05/2015 TECHNIQUE: XR chest 2V Frontal and lateral views of the chest. CLINICAL INDICATION:Male, 82 years old with history of Edema; FINDINGS: Lungs/Pleura: Large lobe airspace opacities on the right that project over the spine lateral view .No pneumothorax or pleural effusion. Heart/mediastinum: Cardiomediastinal silhouette is enlarged and stable. Musculoskeletal: No acute osseous pathology. IMPRESSION: Lower lobe airspace opacities on the right correlate for developing pneumonia.
[2022-12-12] MEDS ORDERED: AMPICILLIN-SULBACTAM 3 GM in SODIUM CHLORIDE 0.9% 100 ML IVPB STA (18:33)
[2022-12-12] MEDS ORDERED: ONDANSETRON 4 MG/2 ML VIAL IVP PRN (18:43)
[2022-12-12] MEDS ORDERED: ACETAMINOPHEN TAB 325 MG TAB PO PRN (18:43)
[2022-12-12] MEDS ORDERED: NALOXONE 0.4 MG/ML 1 ML VIAL IV PRN (18:43)
[2022-12-12] MEDS ORDERED: NITROGLYCERIN SL TABS 0.4 MG TAB SUBLINGUAL PRN (19:48)
[2022-12-12] MEDS: PROBENECID 500 MG TAB PO SCH (20:37)
[2022-12-12] MEDS: MELATONIN 5 MG TABLET PO SCH (20:38)
[2022-12-12] MEDS: DOXYCYCLINE 100 MG CAP PO SCH (20:38)
--- NOTE | 2022-12-12 20:45 | P.HPIM ---
History of Present Illness H&P Date: 12/12/22 Chief Complaint: Lower extremity swelling redness. This is a pleasant 82-year-old patient follows with visiting physicians Dr. Alvarenga. History is obtained by patient's nephew and his at the bedside. Patient lives at [facility]. 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 Also had some bladder cancer nodules. Patient is underlying dementia. Patient's had lower extremity edema more so in the left leg for close to 6 months. Increase in the last 3 weeks. Also noticed some bloating. Denies any obvious fever and chills. Appetite is fair. Slight pain. Some breakdown of skin on lower extre mities some redness. Denies any shortness of breath. No cough Review of systems: GEN.: Tired EYES: None HEENT: None NECK: None RESPIRATORY: None CARDIOVASCULAR: None GASTROINTESTINAL: Some loose stools GENITOURINARY: External Pelaez MUSCULOSKELETAL: Joint pains] LYMPHATICS: None HEMATOLOGICAL: None PSYCHIATRY: Forgetful NEUROLOGICAL: None Past medical history to include: Hypertension, bladder cancer, gallstones, gout, right great toe cancer with 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 Did drink alcohol. Patient a few Ilan martinez is the POA. Physical examination: VITAL SIGNS: 97.9, 78, 18, 152.98, 93% room air GENERAL: BMI 27.4, reclining in bed awake anxious. EYES: Pupils equal. Conjunctiva normal. HEENT: External appearance of nose and ears normal, oral cavity grossly normal. NECK: JVD not raised; masses not palpable. HEART: First and second heart sounds are normal; edema present. LUNGS: Respiratory rate increased decreased breath sounds. ABDOMEN: Soft, some bloating nontender, liver spleen not palpable, no masses palpable. PSYCH: Patient not sure the name of this place, thinks his 2019, thinks it is . MUSCULOSKELETAL:No Clubbing/cyanosis;muscles-grossly intact NEUROLOGICAL: Cranial nerves grossly intact; no facial asymmetry, power and sensation grossly intact. EXTREMITIES: Swelling of both lower extremity. Some redness. Some suppression of breakdown of skin. LYMPHATICS: No lymph nodes palpable in the axilla and neck INVESTIGATIONS, reviewed in the clinical context: White count 7.5 hemoglobin 14.2 platelets 204 potassium 4.2. 23 creatinine 1.5 to ProBNP 1220 EKG tracing personally reviewed by me-normal sinus rhythm Chest x-ray film personally reviewed by me-right basilar infiltrate Assessment and plan: -Possible acute congestive heart exacerbation. EF not known IV Lasix. Strict I's and O's. 2-D echocardiogram. Consult cardiology. -Acute bilateral lower extremity cellulitis Silvadene with Kerlix and Kameron wrap. -Major cognitive impairment, late onset Alzheimer's -Hypothyroid Synthroid 12.5 g a day -Hyperlipidemia Zocor 20 mg a day -Anxiety Celexa -DO NOT RESUSCITATE -Ilan [nephew]: POA Past Medical History Past Medical History: Cancer, Hypertension, Prostate Disorder Additional Past Medical History / Comment(s): hx bladder cancer, unexplained wt loss, gallstones, gout, hx kidney cancer, enlarged prostate History of Any Multi-Drug Resistant Organisms: None Reported Past Surgical History: Cholecystectomy Additional Past Surgical History / Comment(s): rt nephrectomy, cystoscopy Past Anesthesia/Blood Transfusion Reactions: No Reported Reaction Past Psychological History: Anxiety Smoking Status: Never smoker Past Alcohol Use History: Daily Past Drug Use History: None Reported - Past Family History Brother(s) Family Medical History: Cancer Medications and Allergies Home Medications Medication Instructions Recorded Confirmed Type Simvastatin [Zocor] 20 mg PO DAILY@0800 05/07/15 12/12/22 History Cholecalciferol [Vitamin D3 (25 50 mcg PO DAILY 12/12/22 12/12/22 History Mcg = 1000 Iu)] Citalopram Hydrobromide [CeleXA] 20 mg PO DAILY@0812/12/22 12/12/22 History Cyanocobalamin (Vitamin B-12) 1,000 mcg PO DAILY@0812/12/22 12/12/22 History [Vitamin B-12] Donepezil [Aricept] 20 mg PO DAILY@79912/12/22 12/12/22 History Doxycycline Hyclate 100 mg PO BID@08,199912/12/22 12/12/22 History Furosemide [Lasix] 20 mg PO DAILY@0800 12/12/22 12/12/22 History Levothyroxine Sodium [Synthroid] 12.5 mcg PO DAILY@79912/12/22 12/12/22 Histor y Melatonin 5 mg PO HS@199912/12/22 12/12/22 History Nitroglycerin Sl Tabs [Nitrostat] 0.4 mg SUBLINGUAL Q5M PRN 12/12/22 12/12/22 History Probenecid 500 mg PO BID@0800,199912/12/22 12/12/22 History Silver Sulfadiazine [SSD 1% Cream] 1 applic TOPICAL DAILY@0800 12/12/22 12/12/22 History Allergies Allergy/AdvReac Type Severity Reaction Status Date / Time No Known Allergies Allergy Verified 12/12/22 19:26 Physical Exam Vitals: Vital Signs Temp Pulse Resp BP Pulse Ox 12/12/22 18:15 78 18 152/98 93 L 12/12/22 15:06 97.9 F 64 22 147/74 99 Intake and Output 12/12/22 12/12/22 12/12/22 06:59 14:59 22:59 Other: Weight 77.111 kg Results CBC & Chem 7: 12/12/22 16:47 12/12/22 16:47 Labs: Abnormal Lab Results - Last 24 Hours (Table) 12/12/22 12/12/22 Range/Units 16:47 16:47 Lymphocytes # 0.6 L (1.0-4.8) k/uL BUN 23 H (9-20) mg/dL Creatinine 1.52 H (0.66-1.25) mg/dL Calcium 8.3 L (8.4-10.2) mg/dL
[2022-12-12] MEDS: FUROSEMIDE 10 MG/ML 10 ML VIAL IV SCH (21:18)
[2022-12-12] MEDS ORDERED: diazePAM 5 MG TAB PO STA (22:41)
[2022-12-13] MEDS: LEVOTHYROXINE 25 MCG TAB PO SCH (06:42)
[2022-12-13] MEDS: ENOXAPARIN 30 MG/0.3 ML SYRINGE SQ SCH (08:31)
[2022-12-13] MEDS: ATORVASTATIN 10 MG TAB PO SCH (08:32)
[2022-12-13] MEDS: CITALOPRAM HYDROBROMIDE 20 MG TAB PO SCH (08:32)
[2022-12-13] MEDS: CYANOCOBALAMIN 500 MCG TAB PO SCH (08:32)
[2022-12-13] MEDS: CHOLECALCIFEROL 25 MCG (1000 IU) TABLET PO SCH (08:32)
[2022-12-13] MEDS: DONEPEZIL 10 MG TAB PO SCH (08:32)
[2022-12-13] MEDS: PANTOPRAZOLE 40 MG TABLET PO SCH (08:32)
[2022-12-13] MEDS: DOXYCYCLINE 100 MG CAP PO SCH ×2 (08:33→20:57)
[2022-12-13] MEDS: FUROSEMIDE 10 MG/ML 10 ML VIAL IV SCH ×2 (08:34→20:56)
[2022-12-13] MEDS: PROBENECID 500 MG TAB PO SCH ×2 (08:35→22:44)
[2022-12-13] MEDS ORDERED: FUROSEMIDE 10 MG/ML 2 ML VIAL IV SCH (09:00)
[2022-12-13] MEDS ORDERED: PANTOPRAZOLE 40 MG/10 ML VIAL IV SCH (09:00)
--- NOTE | 2022-12-13 10:34 | P.CRDCN ---
History of Present Illness Consult date: 12/13/22 Reason for Consult (text): CHF History of present illness: History of present illness: This is an 82-year-old male patient with no known previous cardiac history. He has a past medical history of dementia, hypothyroidism, hyperlipidemia, hype rtension, kidney cancer status post nephrectomy, remote history of tobacco use. We have been asked to evaluate the patient for heart failure. Due to patient's underlying dementia, only basic answers can be obtained from the patient. He does deny having any chest pain or shortness of breath and no dizziness and no palpitations or syncopal episodes. He is not sure if he has any cough or fever. According to the ER record, patient presented for evaluation of bilateral leg swelling and chronic leg wound sent by his PCP. Patient is seen today in the emergency center waiting for a bed on the [facility] floor. EKG sinus rhythm with no acute ST changes Chest x-ray: Lower lobe airspace opacities on the right correlate for developing pneumonia Nevi WBC 7.5, hemoglobin 14.2, platelet count 204. Sodium 138, potassium 4.2, BUN 23 creatinine 1.52. Troponin negative 1. ProBNP 1220 Home cardiac medications: Lasix 20 mg daily, levothyroxine 12.5 g daily, Nitrostat as needed, simvastatin 20 mg daily Stress echocardiogram 03/2018 revealed limited exercise capacity. No EKG evidence of ischemia. Review Of Systems: At the time of my evaluation: Constitutional: No documented fever. EENT: No headache. No dizziness. Lungs: No respiratory distress noted. No coughing, No wheezing. Cardiovascular: Denies chest pain, + lower extremity edema. Patient is able to lie flat on the stretcher. No documented syncopal episodes Abdominal: No abdominal pain. No mention of vomiting or diarrhea. Integumentary: Erythema to the bilateral lower extremities. No rash. No unusual bruising. Neurologic: No aphasia. No facial droop. Chronic change in mentation due to underlying dementia. Physical examination: Gen: This is an 82-year-old male. He is resting on the ER stretcher and appears to be comfortable and in no acute distress. VS: reviewed. Blood pressure 154/90, heart rate in the 60s to 80s, pulse ox 98% on room air, afebrile HEENT: Head is atraumatic, normocephalic. Pupils equal, round. Sclerae is anicteric. NECK: Supple. No JVD. LUNGS: Clear to auscultation. No wheezes or rhonchi. No intercostal retractions. HEART: Regular rate and rhythm. 1/6 systolic murmur. ABDOMEN: Soft No tenderness. EXTREMITIES: 1+ pedal edema. Erythema to the bilateral lower legs. No calf tenderness. NEUROLOGICAL: Patient is awake, alert and oriented to person. Assessment: Cellulitis of the bilateral lower extremities Edema to the bilateral lower extremities most likely due to cellulitis, doubt CHF CKD with possible JETT Hypertension Hyperlipidemia Hypothyroidism Dementia Plan: Continue patient's home cardiac medications Patient has been started on Lasix 60 mg IV every 12 hours, monitor I&O, daily weights, electrolytes and renal function Patient has been started on IV and oral antibiotics and Silvadene wraps have been ordered to the bilateral lower extremities Obtain 2-D echocardiogram and Doppler study to assess cardiac structure and function Further recommendations to follow based upon clinical course Thank you kindly for this consultation. Nurse practitioner note has been reviewed, I agree with documented findings and plan of care. Patient was seen and examined. Past Medical History Past Medical History: Cancer, Hypertension, Prostate Disorder Additional Past Medical History / Comment(s): hx bladder cancer, unexplained wt loss, gallstones, gout, hx kidney cancer, enlarged prostate History of Any Multi-Drug Resistant Organisms: None Reported Past Surgical History: Cholecystectomy Additional Past Surgical History / Comment(s): rt nephrectomy, cystoscopy Past Anesthesia/Blood Transfusion Reactions: No Reported Reaction Past Psychological History: Anxiety Smoking Status: Never smoker Past Alcohol Use History: Daily Past Drug Use History: None Reported - Past Family History Brother(s) Family Medical History: Cancer Medications and Allergies Home Medications Medication Instructions Recorded Confirmed Type Simvastatin [Zocor] 20 mg PO DAILY@0805/07/15 12/12/22 History Cholecalciferol [Vitamin D3 (25 50 mcg PO DAILY 12/12/22 12/12/22 History Mcg = 1000 Iu)] Citalopram Hydrobromide [CeleXA] 20 mg PO DAILY@79912/12/22 12/12/22 History Cyanocobalamin (Vitamin B-12) 1,000 mcg PO DAILY@79912/12/22 12/12/22 History [Vitamin B-12] Donepezil [Aricept] 20 mg PO DAILY@0800 12/12/22 12/12/22 History Doxycycline Hyclate 100 mg PO BID@799,199912/12/22 12/12/22 History Furosemide [Lasix] 20 mg PO DAILY@0800 12/12/22 12/12/22 History Levothyroxine Sodium [Synthroid] 12.5 mcg PO DAILY@0812/12/22 12/12/22 History Melatonin 5 mg PO HS@199912/12/22 12/12/22 History Nitroglycerin Sl Tabs [Nitrostat] 0.4 mg SUBLINGUAL Q5M PRN 12/12/22 12/12/22 H istory Probenecid 500 mg PO BID@799,199912/12/22 12/12/22 History Silver Sulfadiazine [SSD 1% Cream] 1 applic TOPICAL DAILY@79912/12/22 12/12/22 History Allergies Allergy/AdvReac Type Severity Reaction Status Date / Time No Known Allergies Allergy Verified 12/12/22 19:26 Physical Exam Vitals: Vital Signs Temp Pulse Resp BP Pulse Ox 12/13/22 06:04 65 14 154/90 98 12/13/22 03:37 80 16 94 L 12/12/22 23:58 56 L 15 121/75 95 12/12/22 21:50 75 18 138/90 95 12/12/22 18:15 78 18 152/98 93 L 12/12/22 15:06 97.9 F 64 22 147/74 99 Intake and Output 12/12/22 12/13/22 12/13/22 22:59 06:59 14:59 Output Total 900 Balance -900 Output: Urine 900 Other: Weight 77.111 kg Results 12/12/22 16:47 12/12/22 16:47 Cardiac Enzymes 12/12/22 12/12/22 Range/Units 16:47 16:47 AST 22 (17-59) U/L Troponin I <0.012 (0.000-0.034) ng/mL CBC 12/12/22 Range/Units 16:47 WBC 7.5 (3.8-10.6) k/uL RBC 4.48 (4.30-5.90) m/uL Hgb 14.2 (13.0-17.5) gm/dL Hct 41.9 (39.0-53.0) % Plt Count 204 (150-450) k/uL Comprehensive Metabolic Panel 12/12/22 Range/Units 16:47 Sodium 138 (137-145) mmol/L Potassium 4.2 (3.5-5.1) mmol/L Chloride 104 (98-107) mmol/L Carbon Dioxide 27 (22-30) mmol/L BUN 23 H (9-20) mg/dL Creatinine 1.52 H (0.66-1.25) mg/dL Glucose 81 (74-99) mg/dL Calcium 8.3 L (8.4-10.2) mg/dL AST 22 (17-59) U/L ALT 18 (4-49) U/L Alkaline Phosphatase 69 (38-126) U/L Total Protein 6.5 (6.3-8.2) g/dL Albumin 3.8 (3.5-5.0) g/dL Current Medications Generic Name Dose Route Start Last Admin Trade Name Freq PRN Reason Stop Dose Admin Acetaminophen 650 mg 12/12/22 18:43 12/12/22 20:38 Acetaminophen Tab 325 Mg Tab PO 650 mg Q6HR PRN Administration Mild Pain or Fever > 100.5 Atorvastatin Calcium 10 mg 12/13/22 08:00 Atorvastatin 10 Mg Tab PO DAILY@0800 [facility] Cholecalciferol 50 mcg 12/13/22 09:00 Cholecalciferol 25 Mcg (1000 Iu) Tablet PO DAILY [facility] Citalopram Hydrobromide 20 mg 12/13/22 08:00 Citalopram Hydrobromide 20 Mg Tab PO DAILY@0800 [facility] Cyanocobalamin 1,000 mcg 12/13/22 08:00 Cyanocobalamin 500 Mcg Tab PO DAILY@0800 [facility] Donepezil HCl 20 mg 12/13/22 08:00 Donepezil 10 Mg Tab PO DAILY@0800 [facility] Doxycycline Monohydrate 100 mg 12/12/22 20:00 12/12/22 20:38 Doxycycline 100 Mg Cap PO 100 mg BID@0800,1999 [facility] Administration Enoxaparin Sodium 30 mg 12/13/22 09:00 Enoxaparin 30 Mg/0.3 Ml Syringe SQ DAILY [facility] Furosemide 60 mg 12/12/22 21:00 12/12/22 21:18 Furosemide 10 Mg/Ml 10 Ml Vial IV Not Given Q12HR [facility] Ampicillin Sodium/Sulbactam 100 mls @ 200 mls/hr 12/14/22 08:00 Sodium 3 gm/ Sodium Chloride IVPB Q8HR [facility] Protocol Levothyroxine Sodium 12.5 mcg 12/13/22 06:30 12/13/22 06:42 Levothyroxine 25 Mcg Tab PO 12.5 mcg DAILY@0630 [facility] Administration Melatonin 5 mg 12/12/22 20:00 12/12/22 20:38 Melatonin 5 Mg Tablet PO 5 mg HS@1999 [facility] Administration Naloxone HCl 0.2 mg 12/12/22 18:43 Naloxone 0.4 Mg/Ml 1 Ml Vial IV Q2M PRN Opioid Reversal Nitroglycerin 0.4 mg 12/12/22 19:48 Nitroglycerin Sl Tabs 0.4 Mg Tab SUBLINGUAL Q5M PRN Chest Pain Ondansetron HCl 4 mg 12/12/22 18:43 Ondansetron 4 Mg/2 Ml Vial IVP Q8HR PRN Nausea And Vomiting Pantoprazole Sodium 40 mg 12/13/22 07:30 Pantoprazole 40 Mg Tablet PO AC-BRKFST [facility] Probenecid 500 mg 12/12/22 20:00 12/12/22 20:37 Probenecid 500 Mg Tab PO 500 mg BID@08,1999 [facility] Administration Silver Sulfadiazine 1 applic 12/12/22 21:00 12/12/22 23:50 Silver Sulfadiazine 1% Cream 25 Gm Tube TOPICAL Not Given BID [facility] Protocol Intake and Output 12/12/22 12/13/22 12/13/22 22:59 06:59 14:59 Output Total 900 Balance -900 Output: Urine 900 Other: Weight 77.111 kg 12/12/22 16:47 12/12/22 16:47
--- NOTE | 2022-12-13 11:15 | P.NPCON ---
History of Present Illness - Reason for Consult chronic renal failure - History of Present Illness Reason for consultation: Chronic kidney disease History of present illness: Patient is a 82-year-old male seen in consultation for chronic kidney disease. Patient has chronic kidney disease stage IIIa with baseline creatinine near 1.3- 1.4 from 2018. Creatinine this admission was 1.52. Patient is currently resting in bed. Patient was seen and examined in the emergency room. Patient is not a reliable historian. He is not sure why he is in the hospital. Patient is not sure where he lives. From the chart it is noted the patient was brought to the hospital due to lower extremity swelling and chronic left leg wound. He was sent to the hospital by his PCP. Patient is currently on room air. Blood pressure stable. He denies chest pain or shortness of breath. He has been voiding. He is currently on IV Lasix. He has been evaluated by cardiology. Echocardiogram is pending. He was taking Lasix outpatient but only low dose of 20 mg once daily. He is currently on IV Lasix 60 mg twice daily. I don't see any nonsteroidals and his home medication list. No fever or chills. Vital signs are stable. General: No acute distress. HEENT: Head exam is unremarkable. LUNGS: No audible rhonchi or wheezes. HEART: Rate and Rhythm are regular. ABDOMEN: Soft, nontender. EXTREMITITES: 1+ edema. Lower extremity erythema noted. No drainage. Past Medical History Past Medical History: Cancer, Hypertension, Prostate Disorder Additional Past Medical History / Comment(s): hx bladder cancer, unexplained wt loss, gallstones, gout, hx kidney cancer, enlarged prostate History of Any Multi-Drug Resistant Organisms: None Reported Past Surgical History: Cholecystectomy Additional Past Surgical History / Comment(s): rt nephrectomy, cystoscopy Past Anesthesia/Blood Transfusion Reactions: No Reported Reaction Past Psychological History: Anxiety Smoking Status: Never smoker Past Alcohol Use History: Daily Past Drug Use History: None Reported - Past Family History Brother(s) Family Medical History: Cancer Medications and Allergies Home Medications Medication Instructions Recorded Confirmed Type Simvastatin [Zocor] 20 mg PO DAILY@0800 05/07/15 12/12/22 History Cholecalciferol [Vitamin D3 (25 50 mcg PO DAILY 12/12/22 12/12/22 History Mcg = 1000 Iu)] Citalopram Hydrobromide [CeleXA] 20 mg PO DAILY@0800 12/12/22 12/12/22 History Cyanocobalamin (Vitamin B-12) 1,000 mcg PO DAILY@0800 12/12/22 12/12/22 History [Vitamin B-12] Donepezil [Aricept] 20 mg PO DAILY@0800 12/12/22 12/12/22 History Doxycycline Hyclate 100 mg PO BID@799,199912/12/22 12/12/22 History Furosemide [Lasix] 20 mg PO DAILY@0812/12/22 12/12/22 History Levothyroxine Sodium [Synthroid] 12.5 mcg PO DAILY@79912/12/22 12/12/22 His tory Melatonin 5 mg PO HS@199912/12/22 12/12/22 History Nitroglycerin Sl Tabs [Nitrostat] 0.4 mg SUBLINGUAL Q5M PRN 12/12/22 12/12/22 History Probenecid 500 mg PO BID@799,199912/12/22 12/12/22 History Silver Sulfadiazine [SSD 1% Cream] 1 applic TOPICAL DAILY@79912/12/22 12/12/22 History Allergies Allergy/AdvReac Type Severity Reaction Status Date / Time No Known Allergies Allergy Verified 12/12/22 19:26 Physical Exam Vitals: Vital Signs Temp Pulse Resp BP Pulse Ox 12/13/22 06:04 65 14 154/90 98 12/13/22 03:37 80 16 94 L 12/12/22 23:58 56 L 15 121/75 95 12/12/22 21:50 75 18 138/90 95 12/12/22 18:15 78 18 152/98 93 L 12/12/22 15:06 97.9 F 64 22 147/74 99 Intake and Output 12/12/22 12/13/22 12/13/22 22:59 06:59 14:59 Output Total 900 Balance -900 Output: Urine 900 Other: Weight 77.111 kg Results - Lab Results Most recent lab results Calcium 8.3 mg/dL (8.4-10.2) L 12/12/22 16:47 12/12/22 16:47 12/12/22 16:47 Assessment and Plan Plan: Assessment: 1. Acute kidney injury versus progression of underlying chronic kidney disease. Creatinine 1.52. Creatinine in 2018 was in the range of 1.2-1.4. Etiology is nephrosclerosis. 2. Volume overload. 3. Left lower extremity wound. On IV antibiotics. 4. Chronic kidney disease stage IIIa with baseline creatinine 1.2-1.4 in 2018. Suspect nephrosclerosis. Plan: Maintain IV Lasix for now. Follow-up echocardiogram. Check urinalysis. Check renal ultrasound. Avoid nephrotoxins. Continue to monitor renal function and urine output. Thank you for the consultation. I will continue to follow the patient with you during his hospital stay.
--- NOTE | 2022-12-13 12:59 | US ---
EXAMINATION TYPE: US kidneys/renal and bladder DATE OF EXAM: 12/13/2022 COMPARISON: US CLINICAL HISTORY: jett. JETT EXAM MEASUREMENTS: Right Kidney: Surgically absent Left Kidney: 10.5 x 6.1 x 5.7 cm Right Kidney: Surgically absent Left Kidney: Cortical thinning, No evidence of hydro Bladder: Pt has cath in place No hydronephrosis is evident. IMPRESSION: Unremarkable left kidney.
--- NOTE | 2022-12-13 14:04 | CA ---
Transthoracic Echo Report Name: Richi Winters Age: 82 Gender: M : 1940 Exam Date: 12/13/2022 07:12 Exam Location: [facility] Ht (in): 66 Wt (lb): 170 Ordering Physician: Yusuf Miranda MD Attending/Referring Phys: [employer] Tool Maker Melva Harper RDCS Procedure CPT: Indications: chf Cardiac Hx: Technical Quality: Fair Contrast 1: Total Dose (mL): Contrast 2: Total Dose (mL): MEASUREMENTS (Male / Female) Normal Values 2D ECHO LV Diastolic Diameter PLAX 4.6 cm 4.2 - 5.9 / 3.9 - 5.3 cm LV Systolic Diameter PLAX 3.1 cm IVS Diastolic Thickness 1.0 cm 0.6 - 1.0 / 0.6 - 0.9 cm LVPW Diastolic Thickness 1.3 cm 0.6 - 1.0 / 0.6 - 0.9 cm LV Relative Wall Thickness 0.5 LA Volume 58.9 cm??? 18 - 58 / 22 - 52 cm??? M-MODE Aortic Root Diameter MM 2.4 cm LA Systolic Diameter MM 4.6 cm LA Ao Ratio MM 1.9 AV Cusp Separation MM 1.6 cm DOPPLER AV Peak Velocity 141.2 cm/s AV Peak Gradient 8.0 mmHg LVOT Peak Velocity 108.7 cm/s LVOT Peak Gradient 4.7 mmHg MV Area PHT 4.3 cm??? Mitral E Point Velocity 67.0 cm/s Mitral A Point Velocity 89.4 cm/s Mitral E to A Ratio 0.8 MV Deceleration Time 178.0 ms TR Peak Velocity 288.7 cm/s TR Peak Gradient 33.3 mmHg Right Atrial Pressure 3.0 mmHg Pulmonary Artery Systolic Pressu 36.3 mmHg Right Ventricular Systolic Press 36.3 mmHg FINDINGS Left Ventricle Left ventricular cavity size normal. Left ventricular wall thickness normal. Left ventricular ejection fraction is estimated at 55-60 %. Right Ventricle Normal right ventricular size. Normal right ventricular global systolic function. Mild pulmonary hypertension. Right Atrium Mild right atrial dilatation. Left Atrium Mild left atrial dilatation. Mitral Valve Mild to moderate mitral regurgitation.mitral annular calcification. Aortic Valve Trileaflet aortic valve. No aortic regurgitation. No aortic stenosis.aortic valve sclerosis. Tricuspid Valve Mild tricuspid regurgitation.structurally normal tricuspid valve. Pulmonic Valve Pulmonic valve not well visualized. Pericardium Echo free space anterior to the right ventricle likely represents a fat pad. Aorta Normal size aortic root and proximal ascending aorta. CONCLUSIONS 1. Normal left ventricle size and systolic function 2. Mild to moderate mitral with mild tricuspid regurgitation and mild pulmonary hypertension Previewed by: Dr. Adelaide Moran MD (Electronically Signed) Final Date: 13 December 2022 14:03
--- NOTE | 2022-12-13 16:16 | P.PN ---
Progress Note - Text Progress Note Date: 12/13/22 Chief Complaint: Lower extremity swelling redness. This is a pleasant 82-year-old patient follows with visiting physicians Dr. Alvarenga. History is obtained by patient's nephew and his at the bedside. Patient lives at [facility]. 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 Also had some bladder cancer nodules. Patient is underlying dementia. Patient's had lower extremity edema more so in the left leg for close to 6 months. Increase in the last 3 weeks. Also noticed some bloating. Denies any obvious fever and chills. Appetite is fair. Slight pain. Some breakdown of skin on lower extremities some redness. Denies any shortness of breath. No cough Admitted with CHF exacerbation, acute lower extremity cellulitis. IV Lasix. IV Unasyn. Silvadene cream lower extremity with Kerlix and Kameron wrap. 12/13/2022: Seen by cardiology. On IV Lasix 60 mg every 12. Patient doing better today. Son and daughter the bedside. Discussed. IV Unasyn Active Medications Acetaminophen (Acetaminophen Tab 325 Mg Tab) 650 mg PO Q6HR PRN PRN Reason: Mild Pain or Fever > 100.5 Last Admin: 12/12/22 20:38 Dose: 650 mg Atorvastatin Calcium (Atorvastatin 10 Mg Tab) 10 mg PO DAILY@0800 [facility] Last Admin: 12/13/22 08:32 Dose: 10 mg Cholecalciferol (Cholecalciferol 25 Mcg (1000 Iu) Tablet) 50 mcg PO DAILY [facility] Last Admin: 12/13/22 08:32 Dose: 50 mcg Citalopram Hydrobromide (Citalopram Hydrobromide 20 Mg Tab) 20 mg PO DAILY@0800 [facility] Last Admin: 12/13/22 08:32 Dose: 20 mg Cyanocobalamin (Cyanocobalamin 500 Mcg Tab) 1,000 mcg PO DAILY@0800 [facility] Last Admin: 12/13/22 08:32 Dose: 1,000 mcg Donepezil HCl (Donepezil 10 Mg Tab) 20 mg PO DAILY@0800 [facility] Last Admin: 12/13/22 08:32 Dose: 20 mg Doxycycline Monohydrate (Doxycycline 100 Mg Cap) 100 mg PO BID@0800,1999 [facility] Last Admin: 12/13/22 08:33 Dose: 100 mg Enoxaparin Sodium (Enoxaparin 30 Mg/0.3 Ml Syringe) 30 mg SQ DAILY [facility] Last Admin: 12/13/22 08:31 Dose: 30 mg Furosemide (Furosemide 10 Mg/Ml 10 Ml Vial) 60 mg IV Q12HR [facility] Last Admin: 12/13/22 08:34 Dose: 60 mg Ampicillin Sodium/Sulbactam (Sodium 3 gm/ Sodium Chloride) 100 mls @ 200 mls/hr IVPB Q8HR [facility]; Protocol Levothyroxine Sodium (Levothyroxine 25 Mcg Tab) 12.5 mcg PO DAILY@0630 [facility] Last Admin: 12/13/22 06:42 Dose: 12.5 mcg Melatonin (Melatonin 5 Mg Tablet) 5 mg PO HS@1999 [facility] Last Admin: 12/12/22 20:38 Dose: 5 mg Naloxone HCl (Naloxone 0.4 Mg/Ml 1 Ml Vial) 0.2 mg IV Q2M PRN PRN Reason: Opioid Reversal Nitroglycerin (Nitroglycerin Sl Tabs 0.4 Mg Tab) 0.4 mg SUBLINGUAL Q5M PRN PRN Reason: Chest Pain Ondansetron HCl (Ondansetron 4 Mg/2 Ml Vial) 4 mg IVP Q8HR PRN PRN Reason: Nausea And Vomiting Pantoprazole Sodium (Pantoprazole 40 Mg Tablet) 40 mg PO AC-BRKFST [facility] Last Admin: 12/13/22 08:32 Dose: 40 mg Probenecid (Probenecid 500 Mg Tab) 500 mg PO BID@799,1999 [facility] Last Admin: 12/13/22 08:35 Dose: 500 mg Silver Sulfadiazine (Silver Sulfadiazine 1% Cream 25 Gm Tube) 1 applic TOPICAL BID [facility]; Protocol Last Admin: 12/13/22 12:35 Dose: 1 applic Past medical history to include: Hypertension, bladder cancer, gallstones, gout, right great toe cancer with 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 Did drink alcohol. Patient a carmen martinez is the POA. Physical examination: VITAL SIGNS: 61, 18, 115/72, 98% room air GENERAL: BMI 27.4, reclining in bed less anxious EYES: Pupils equal. Conjunctiva normal. HEENT: External appearance of nose and ears normal, oral cavity grossly normal. NECK: JVD not raised; masses not palpable. HEART: First and second heart sounds are normal; edema present. LUNGS: Respiratory rate increased decreased breath sounds. ABDOMEN: Soft, some bloating nontender, liver spleen not palpable, no masses palpable. PSYCH: Patient not sure the name of this place, thinks his 2020, thinks it is . MUSCULOSKELETAL:No Clubbing/cyanosis;muscles-grossly intact NEUROLOGICAL: Cranial nerves grossly intact; no facial asymmetry, power and sensation grossly intact. EXTREMITIES: Decrease Swelling of both lower extremity. Some redness. Some superficial breakdown of skin. INVESTIGATIONS, reviewed in the clinical context: Renal ultrasound: Right kidney absent. Left kidney cortical thinning. 2-D echocardiogram: EF 55-60% [id number] MR. White count 7.5 hemoglobin 14.2 platelets 204 potassium 4.2. 23 creatinine 1.5 to ProBNP 1220 EKG tracing personally reviewed by me-normal sinus rhythm Chest x-ray film personally reviewed by me-right basilar infiltrate Assessment and plan: -Possible acute congestive heart exacerbation. From diastolic dysfunction. EF 55-60%. IV Lasix. Strict I's and O's. Follow with cardiology. -Acute bilateral lower extremity cellulitis Silvadene with Kerlix and Kameron wrap. -Major cognitive impairment, late onset Alzheimer's -Hypothyroid Synthroid 12.5 g a day. Check TSH -Hyperlipidemia Zocor 20 mg a day -Anxiety Celexa - chronic kidney disease stage III, with right nephrectomy, and cortical thinning left kidney Follow with nephrology -History of right nephrectomy, right ureter removal from malignancy -DO NOT RESUSCITATE -Ilan [nephew]: POA Discussed at length with the son and daughter the bedside. We'll give IV Lasix today. Stop after tonight. Reevaluate fluid status in the morning along with renal function given single kidney and give diuretics accordingly.
[2022-12-13 20:14] LABS: Glucose,Whole Blood 119 mg/dL (70-110)
[2022-12-13] MEDS: MELATONIN 5 MG TABLET PO SCH (20:56)
[2022-12-13 21:19] LABS: Appearance,Urine Clear (Clear); Bilirubin,Urine Negative (Negative); Blood,Urine Negative (Negative); Color,Urine Light Yellow; Glucose,Urine (UA) Negative (Negative); Ketones,Urine Negative (Negative); Leukocyte Esterase,Urine Negative (Negative); Nitrite,Urine Negative (Negative); Protein,Urine Negative (Negative); Specific Gravity,Urine 1.014 (1.001-1.035); Urobilinogen,Urine <2.0 mg/dL (<2.0)
[2022-12-14 06:01] LABS: Glucose,Whole Blood 109 mg/dL (70-110)
[2022-12-14] MEDS: PANTOPRAZOLE 40 MG TABLET PO SCH (06:34)
[2022-12-14] MEDS: LEVOTHYROXINE 25 MCG TAB PO SCH (06:34)
[2022-12-14 07:45] LABS: African American GFR (CKD) 35 (>60 ml/min/1.73 sqM); Anion Gap 6 mmol/L; Blood Urea Nitrogen 31 mg/dL (9-20); Calcium 8.6 mg/dL (8.4-10.2); Carbon Dioxide 31 mmol/L (22-30); Chloride 105 mmol/L (98-107); Glucose 97 mg/dL (74-99); Non-African American GFR(CKD) 30 (>60 ml/min/1.73 sqM); Potassium 3.6 mmol/L (3.5-5.1); Sodium 142 mmol/L (137-145)
[2022-12-14] MEDS ORDERED: AMPICILLIN-SULBACTAM 3 GM in SODIUM CHLORIDE 0.9% 100 ML IVPB SCH (08:00)
[2022-12-14] MEDS: PROBENECID 500 MG TAB PO SCH ×2 (08:51→19:55)
[2022-12-14] MEDS: ENOXAPARIN 30 MG/0.3 ML SYRINGE SQ SCH (08:51)
[2022-12-14] MEDS: DOXYCYCLINE 100 MG CAP PO SCH ×2 (08:51→19:55)
[2022-12-14] MEDS: CHOLECALCIFEROL 25 MCG (1000 IU) TABLET PO SCH (08:51)
[2022-12-14] MEDS: DONEPEZIL 10 MG TAB PO SCH (08:51)
[2022-12-14] MEDS: ATORVASTATIN 10 MG TAB PO SCH (08:51)
[2022-12-14] MEDS: CITALOPRAM HYDROBROMIDE 20 MG TAB PO SCH (08:51)
[2022-12-14] MEDS: CYANOCOBALAMIN 500 MCG TAB PO SCH (08:52)
--- NOTE | 2022-12-14 09:04 | P.PN ---
Subjective Progress Note Date: 12/14/22 History of present illness: This is an 82-year-old male patient with no known previous cardiac history. He has a past medical history of dementia, hypothyroidism, hyperlipidemia, hypertension, kidney cancer status post nephrectomy, remote history of tobacco use. We have been asked to evaluate the patient for heart failure. Due to patient's underlying dementia, only basic answers can be obtained from the patient. He does deny having any chest pain or shortness of breath and no dizziness and no palpitations or syncopal episodes. He is not sure if he has any cough or fever. According to the ER record, patient presented for evaluation of bilateral leg swelling and chronic leg wound sent by his PCP. Patient is seen today in the emergency center waiting for a bed on the [facility] floor. EKG sinus rhythm with no acute ST changes Chest x-ray: Lower lobe airspace opacities on the right correlate for developing pneumonia Nevi WBC 7.5, hemoglobin 14.2, platelet count 204. Sodium 138, potassium 4.2, BUN 23 creatinine 1.52. Troponin negative 1. ProBNP 1220 Home cardiac medications: Lasix 20 mg daily, levothyroxine 12.5 g daily, Nitrostat as needed, simvastatin 20 mg daily Stress echocardiogram 03/2018 revealed limited exercise capacity. No EKG evidence of ischemia. 12/14 Patient is seen in follow-up today. Patient is unable to give any reliable history. He denies any shortness of breath. Lower extremity edema and erythema are improved. He has been on IV Lasix 60 mg every 12 hours. Echocardiogram reveals normal left ventricle size and systolic function. Mild to moderate mitral and mild tricuspid regurgitation and mild pulmonary hypertension. Repeat blood work reveals potassium of 3.6, BUN 31 creatinine 2.01. TSH 3.62. Physical examination: Gen: This is an 82-year-old male. He is resting in bed and appears to be comfortable and in no acute distress. VS: reviewed. Blood pressure 154/90, heart rate in the 60s to 80s, pulse ox 98% on room air, afebrile HEENT: Head is atraumatic, normocephalic. Pupils equal, round. Sclerae is anicteric. NECK: Supple. No JVD. LUNGS: Clear to auscultation. No wheezes or rhonchi. No intercostal retractions. HEART: Regular rate and rhythm. 1/6 systolic murmur. ABDOMEN: Soft No tenderness. EXTREMITIES: Trace pedal edema. Dressings in place to the lower calf and feet, no significant erythema above dressing. NEUROLOGICAL: Patient is awake, alert and oriented to person. Assessment: Cellulitis of the bilateral lower extremities Edema to the bilateral lower extremities most likely due to cellulitis, doubt CHF CKD with JETT Hypertension Hyperlipidemia Hypothyroidism Dementia Plan: Continue patient's home cardiac medications Would recommend transitioning IV Lasix to oral, monitor renal function and electrolytes Patient is cleared for discharge from cardiology. We will sign off and follow on an as-needed basis. Please reconsult for any new concerns. Nurse practitioner note has been reviewed, I agree with documented findings and plan of care. Patient was seen and examined. Objective - Vital Signs Vital signs: Vital Signs Temp 97.9 F 12/14/22 01:38 Pulse 60 12/14/22 01:38 Resp 16 12/14/22 01:38 BP 146/83 12/14/22 01:38 Pulse Ox 97 12/14/22 01:38 FiO2 Intake & Output 12/13/22 12/14/22 12/14/22 18:59 06:59 18:59 Intake Total 100 480 Output Total 1125 Balance 100 -645 Weight 77.111 kg Intake: Oral 100 480 Output: Urine 1125 Other: Voiding Method External Catheter # Voids 1 - Labs CBC & Chem 7: 12/12/22 16:47 12/14/22 06:20 Labs: Abnormal Lab Results - Last 24 Hours (Table) 12/13/22 12/14/22 Range/Units 20:12 06:20 Carbon Dioxide 31 H (22-30) mmol/L BUN 31 H (9-20) mg/dL Creatinine 2.01 H (0.66-1.25) mg/dL POC Glucose (mg/dL) 119 H (70-110) mg/dL Microbiology - Last 24 Hours (Table) 12/12/22 17:14 Blood Culture - Preliminary Blood No Growth after 24 hours
[2022-12-14 11:53] LABS: Glucose,Whole Blood 119 mg/dL (70-110)
--- NOTE | 2022-12-14 14:50 | P.PN ---
Subjective Patient is seen in follow-up for acute kidney injury on chronic kidney disease. Renal function worse from diuresis. Edema improved. Blood pressure stable. On room air. Denies chest pain or shortness of breath. Vital signs are stable. General: No acute distress. HEENT: Head exam is unremarkable. LUNGS: No audible rhonchi or wheezes. HEART: Rate and Rhythm are regular. ABDOMEN: Nontender. EXTREMITITES: No edema. Objective - Vital Signs Vital signs: Vital Signs Temp 97.8 F 12/14/22 07:40 Pulse 55 L 12/14/22 07:40 Resp 15 12/14/22 07:40 BP 147/70 12/14/22 07:40 Pulse Ox 97 12/14/22 01:38 FiO2 Intake & Output 12/13/22 12/14/22 12/14/22 18:59 06:59 18:59 Intake Total 100 480 Output Total 1125 Balance 100 -645 Weight 77.111 kg Intake: Oral 100 480 Output: Urine 1125 Other: Voiding Method External Catheter External Catheter # Voids 1 - Labs CBC & Chem 7: 12/12/22 16:47 12/14/22 06:20 Labs: Abnormal Lab Results - Last 24 Hours (Table) 12/13/22 12/14/22 12/14/22 Range/Units 20:12 06:20 11:52 Carbon Dioxide 31 H (22-30) mmol/L BUN 31 H (9-20) mg/dL Creatinine 2.01 H (0.66-1.25) mg/dL POC Glucose (mg/dL) 119 H 119 H (70-110) mg/dL Microbiology - Last 24 Hours (Table) 12/12/22 17:14 Blood Culture - Preliminary Blood No Growth after 24 hours Assessment and Plan Plan: Assessment: 1. Acute kidney injury versus progression of underlying chronic kidney disease. Creatinine 1.52 on admission and is up to 2.01 today. Renal function worse from diuresis. Creatinine in 2018 was in the range of 1.2-1.4. Etiology is nephrosclerosis. 2. Volume overload. Improved with diuresis. 3. Left lower extremity wound. On IV antibiotics. 4. Chronic kidney disease stage IIIa with baseline creatinine 1.2-1.4 in 2018. Etiology is solitary left kidney. No hydronephrosis noted on ultrasound. UA benign. 5. Acute on chronic diastolic CHF and mild to moderate mitral regurgitation. Plan: Agree with holding diuretics. No evidence of fluid overload at this time. Avoid nephrotoxins. Continue to monitor renal function and urine output.
--- NOTE | 2022-12-14 16:54 | P.PN ---
Progress Note - Text Progress Note Date: 12/14/22 Chief Complaint: Lower extremity swelling redness. This is a pleasant 82-year-old patient follows with visiting physicians Dr. Alvarenga. History is obtained by patient's nephew and his at the bedside. Patient lives at [facility]. 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 Also had some bladder cancer nodules. Patient is underlying dementia. Patient's had lower extremity edema more so in the left leg for close to 6 months. Increase in the last 3 weeks. Also noticed some bloating. Denies any obvious fever and chills. Appetite is fair. Slight pain. Some breakdown of skin on lower extremities some redness. Denies any shortness of breath. No cough Admitted with CHF exacerbation, acute lower extremity cellulitis. IV Lasix. IV Unasyn. Silvadene cream lower extremity with Kerlix and Kameron wrap. 12/13/2022: Seen by cardiology. On IV Lasix 60 mg every 12. Patient doing better today. Son and daughter the bedside. Discussed. IV Unasyn 12/14/2022: Lower extremity edema is come down. Creatinine up to 2.0. Stasis was discontinued yesterday evening. Discussed with Dr. Araujo. Continue to hold Lasix. Check creatinine tomorrow. Discussed with the patient's nephew Ilan and his on the phone. Extensive discussion about patient's condition. Understands guarded prognosis. Concern about lung cancer. But given that they'll not do anything about it this not be pursued further. Total time spent today was in 50 minutes Active Medications Acetaminophen (Acetaminophen Tab 325 Mg Tab) 650 mg PO Q6HR PRN PRN Reason: Mild Pain or Fever > 100.5 Last Admin: 12/12/22 20:38 Dose: 650 mg Atorvastatin Calcium (Atorvastatin 10 Mg Tab) 10 mg PO DAILY@0800 [facility] Last Admin: 12/14/22 08:51 Dose: 10 mg Cholecalciferol (Cholecalciferol 25 Mcg (1000 Iu) Tablet) [address] [facility] Last Admin: 12/14/22 08:51 Dose: 50 mcg Citalopram Hydrobromide (Citalopram Hydrobromide 20 Mg Tab) 20 mg PO DAILY@0800 [facility] Last Admin: 12/14/22 08:51 Dose: 20 mg Cyanocobalamin (Cyanocobalamin 500 Mcg Tab) 1,000 mcg PO DAILY@08 [facility] Last Admin: 12/14/22 08:52 Dose: 1,000 mcg Donepezil HCl (Donepezil 10 Mg Tab) 20 mg PO DAILY@08 [facility] Last Admin: 12/14/22 08:51 Dose: 20 mg Doxycycline Monohydrate (Doxycycline 100 Mg Cap) 100 mg PO BID@ [facility] Stop: 12/19/22 23:00 Last Admin: 12/14/22 08:51 Dose: 100 mg Enoxaparin Sodium (Enoxaparin 30 Mg/0.3 Ml Syringe) [address] [facility] Last Admin: 12/14/22 08:51 Dose: 30 mg Ampicillin Sodium/Sulbactam (Sodium 3 gm/ Sodium Chloride) 100 mls @ 200 mls/hr IVPB Q12HR [facility]; Protocol Levothyroxine Sodium (Levothyroxine 25 Mcg Tab) 12.5 mcg PO DAILY@06 [facility] Last Admin: 12/14/22 06:34 Dose: 12.5 mcg Melatonin (Melatonin 5 Mg Tablet) 5 mg PO HS@1999 [facility] Last Admin: 12/13/22 20:56 Dose: 5 mg Naloxone HCl (Naloxone 0.4 Mg/Ml 1 Ml Vial) 0.2 mg IV Q2M PRN PRN Reason: Opioid Reversal Nitroglycerin (Nitroglycerin Sl Tabs 0.4 Mg Tab) 0.4 mg SUBLINGUAL Q5M PRN PRN Reason: Chest Pain Ondansetron HCl (Ondansetron 4 Mg/2 Ml Vial) 4 mg IVP Q8HR PRN PRN Reason: Nausea And Vomiting Pantoprazole Sodium (Pantoprazole 40 Mg Tablet) 40 [address] AC-BRKFST [facility] Last Admin: 12/14/22 06:34 Dose: 40 mg Probenecid (Probenecid 500 Mg Tab) 500 mg PO BID@ [facility] Last Admin: 12/14/22 08:51 Dose: 500 mg Silver Sulfadiazine (Silver Sulfadiazine 1% Cream 25 Gm Tube) [address] 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 Did drink alcohol. Patient a carmen martinez is the POA. Physical examination: VITAL SIGNS: 97.8, 55, 15, 147/70, 97% room air GENERAL: Up in a chair, comfortable smiling EYES: Pupils equal. Conjunctiva normal. HEENT: External appearance of nose and ears normal, oral cavity grossly normal. NECK: JVD not raised; masses not palpable. HEART: First and second heart sounds are normal; edema present. LUNGS: Respiratory rate increased decreased breath sounds. ABDOMEN: Soft, some bloating nontender, liver spleen not palpable, no masses palpable. PSYCH: Patient able to hold a simple conversation. EXTREMITIES: Decrease Swelling of both lower extremity. Decreased redness. Some superficial breakdown of skin. INVESTIGATIONS, reviewed in the clinical context: December 14: Potassium 3.6 BUN 31 creatine 2.01 TSH 3.6 Renal ultrasound: Right kidney absent. Left kidney cortical thinning. 2-D echocardiogram: EF 55-60% [id number] MR. White count 7.5 hemoglobin 14.2 platelets 204 potassium 4.2. 23 creatinine 1.5 to ProBNP 1220 EKG tracing personally reviewed by me-normal sinus rhythm Chest x-ray film personally reviewed by me-right basilar infiltrate Assessment and plan: -Possible acute congestive heart exacerbation. From diastolic dysfunction. EF 55-60%.: Better IV Lasix-discontinued yesterday. Strict I's and O's. Follow with cardiology. -Acute bilateral lower extremity cellulitis: Improving Silvadene with Kerlix and Kameron wrap. -Major cognitive impairment, late onset Alzheimer's -Hypothyroid Synthroid 12.5 g a day. Check TSH -Hyperlipidemia Zocor 20 mg a day -Anxiety Celexa - chronic kidney disease stage III, with right nephrectomy, and cortical thin skinny left kidney Follow with nephrology -History of right nephrectomy, right ureter removal from malignancy -DO NOT RESUSCITATE -Ilan [nephew]: POA Lasix held last night. Repeat creatinine tomorrow. Discussed with nephrology. Discussed with the nephew and [id number]. They understand guarded prognosis. We will go to rehab. I spent more than 50 minutes today.
[2022-12-14 17:15] LABS: Glucose,Whole Blood 80 mg/dL (70-110)
[2022-12-14] MEDS: MELATONIN 5 MG TABLET PO SCH (19:55)
[2022-12-14] MEDS: AMPICILLIN-SULBACTAM 3 GM in SODIUM CHLORIDE 0.9% 100 ML IVPB SCH (19:55)
[2022-12-14 20:38] LABS: Glucose,Whole Blood 114 mg/dL (70-110)
[2022-12-15] MEDS: PANTOPRAZOLE 40 MG TABLET PO SCH (05:29)
[2022-12-15] MEDS: LEVOTHYROXINE 25 MCG TAB PO SCH (05:29)
[2022-12-15 06:25] LABS: Glucose,Whole Blood 98 mg/dL (70-110)
[2022-12-15 08:13] VITALS: PULSE 63
[2022-12-15] MEDS: DONEPEZIL 10 MG TAB PO SCH (08:49)
[2022-12-15] MEDS: CYANOCOBALAMIN 500 MCG TAB PO SCH (08:49)
[2022-12-15] MEDS: ATORVASTATIN 10 MG TAB PO SCH (08:49)
[2022-12-15] MEDS: CITALOPRAM HYDROBROMIDE 20 MG TAB PO SCH (08:49)
[2022-12-15] MEDS: AMPICILLIN-SULBACTAM 3 GM in SODIUM CHLORIDE 0.9% 100 ML IVPB SCH (08:50)
[2022-12-15] MEDS: DOXYCYCLINE 100 MG CAP PO SCH (08:50)
[2022-12-15] MEDS: CHOLECALCIFEROL 25 MCG (1000 IU) TABLET PO SCH (08:50)
[2022-12-15] MEDS: PROBENECID 500 MG TAB PO SCH (08:50)
[2022-12-15] MEDS: ENOXAPARIN 30 MG/0.3 ML SYRINGE SQ SCH (08:51)
[2022-12-15 08:53] LABS: African American GFR (CKD) 45.8 (60.0-200.0); Anion Gap 8.6 mmol/L (10.00-18.00); BUN/Creat Ratio 21.44 Ratio (12.00-20.00); Blood Urea Nitrogen 34.3 mg/dL (9.0-27.0); Calcium 8.6 mg/dL (8.7-10.3); Carbon Dioxide 28.4 mmol/L (20.0-27.5); Magnesium 2.1 mg/dL (1.5-2.4); Non-African American GFR(CKD) 39.5 (60.0-200.0); Potassium 3.4 mmol/L (3.5-5.5)
[2022-12-15 11:48] LABS: Glucose,Whole Blood 104 mg/dL (70-110)
[2022-12-15] MEDS ORDERED: POTASSIUM CHLORIDE ER 20 MEQ TAB.ER PO STA (13:11)
--- NOTE | 2022-12-15 13:13 | P.PN ---
Subjective Patient is seen in follow-up for acute kidney injury on chronic kidney disease. Renal function better today. Edema improved. Blood pressure stable. On room air. Denies chest pain or shortness of breath. Vital signs are stable. General: No acute distress. HEENT: Head exam is unremarkable. LUNGS: No audible rhonchi or wheezes. HEART: Rate and Rhythm are regular. ABDOMEN: Nontender. EXTREMITITES: No edema. Objective - Vital Signs Vital signs: Vital Signs Temp 97.9 F 12/15/22 08:00 Pulse 63 12/15/22 08:00 Resp 18 12/15/22 09:25 BP 127/79 12/15/22 08:00 Pulse Ox 96 12/15/22 08:00 FiO2 Intake & Output 12/14/22 12/15/22 12/15/22 18:59 06:59 18:59 Intake Total 850 700 Balance 850 700 Intake: Intake, IV Titration 200 100 Amount Ampicillin-Sulbactam 3 gm 200 100 In Sodium Chloride 0.9% 100 ml @ 200 mls/hr IVPB Q12HR [facility] Rx#:[id number] Oral 650 600 Other: Voiding Method External Catheter Diaper Diaper Incontinent Incontinent # Voids 3 2 1 # Bowel Movements 1 - Labs CBC & Chem 7: 12/12/22 16:47 12/15/22 06:18 Labs: Abnormal Lab Results - Last 24 Hours (Table) 12/14/22 12/15/22 Range/Units 20:36 06:18 Potassium 3.4 L (3.5-5.5) mmol/L Carbon Dioxide 28.4 H (20.0-27.5) mmol/L Anion Gap 8.60 L (10.00-18.00) mmol/L BUN 34.3 H (9.0-27.0) mg/dL Creatinine 1.6 H (0.6-1.5) mg/dL Est GFR (CKD-EPI)AfAm 45.8 L (60.0-200.0) Est GFR (CKD-EPI)NonAf 39.5 L (60.0-200.0) BUN/Creatinine Ratio 21.44 H (12.00-20.00) Ratio POC Glucose (mg/dL) 114 H (70-110) mg/dL Calcium 8.6 L (8.7-10.3) mg/dL Microbiology - Last 24 Hours (Table) 12/12/22 17:14 Blood Culture - Preliminary Blood No Growth after 48 hours Assessment and Plan Plan: Assessment: 1. Acute kidney injury versus progression of underlying chronic kidney disease. Creatinine 1.52 on admission and peaked at 2.01 this admission - 1.6 today. Renal function worse from diuresis. Creatinine in 2018 was in the range of 1.2- 1.4. Etiology is nephrosclerosis. 2. Volume overload. Improved with diuresis. 3. Left lower extremity wound. On IV antibiotics. 4. Chronic kidney disease stage IIIa with baseline creatinine 1.2-1.4 in 2018. Etiology is solitary left kidney. No hydronephrosis noted on ultrasound. UA benign. 5. Acute on chronic diastolic CHF and mild to moderate mitral regurgitation. 6. Hypokalemia from diuresis. Plan: Continue to hold diuretics for now. Advised low salt diet. Avoid nephrotoxins. Continue to monitor renal function and urine output. Replace potassium. If develops edema in the lower extremities are weak and of more than 3 pounds in 1 week duration, to start Lasix 40 mg once daily. Follow up outpatient in 1 week post discharge.
--- NOTE | 2022-12-15 13:27 | P.DS ---
Providers Date of admission: 12/12/22 18:54 Expected date of discharge: 12/15/22 Attending physician: Yusuf Miranda Consults: 12/12/22 20:42 Consult Physician Routine Consulting Provider: Adelaide Moran Consult Reason/Comments: CHF Do you want consulting provider notified?: Yes 12/12/22 20:46 Consult Physician Routine Consulting Provider: Jonnathan Araujo Consult Reason/Comments: Kidney failure Do you want consulting provider notified?: Yes Primary care physician: Jerrod Alvarenga [facility] Course: Chief Complaint: Lower extremity swelling redness. This is a pleasant 82-year-old patient follows with visiting physicians Dr. Alvarenga. History is obtained by patient's nephew and his at the bedside. Patient lives at [facility]. 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 Also had some bladder cancer nodules. Patient is underlying dementia. Patient's had lower extremity edema more so in the left leg for close to 6 months. Increase in the last 3 weeks. Also noticed some bloating. Denies any obvious fever and chills. Appetite is fair. Slight pain. Some breakdown of skin on lower extremities some redness. Denies any shortness of breath. No cough Admitted with CHF exacerbation, acute lower extremity cellulitis. IV Lasix. IV Unasyn. Silvadene cream lower extremity with Kerlix and Kameron wrap. 12/13/2022: Seen by cardiology. On IV Lasix 60 mg every 12. Patient doing better today. Son and daughter the bedside. Discussed. IV Unasyn 12/14/2022: Lower extremity edema is come down. Creatinine up to 2.0. Stasis was discontinued yesterday evening. Discussed with Dr. Araujo. Continue to hold Lasix. Check creatinine tomorrow. Discussed with the patient's nephew Ilan and his on the phone. Extensive discussion about patient's condition. Understands guarded prognosis. Concern about lung cancer. But given that they'll not do anything about it this not be pursued further. Total time spent today was in 50 minutes 12/15/2022: Edema greatly improved. Cellulitis improved. Discussed with nephrology. Lasix 40 mg alternate day. Patient to follow up outpatient with nephrology. BMP in 1 week. Discussed with case management social worker. 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 Did drink alcohol. Patient a carmen martinez is the POA. Physical examination: VITAL SIGNS: 97.9, 63, 18, 1 27 x 79, 96% room air GENERAL: Up in a chair, comfortable EYES: Pupils equal. Conjunctiva normal. HEENT: External appearance of nose and ears normal, oral cavity grossly normal. NECK: JVD not raised; masses not palpable. HEART: First and second heart sounds are normal; edema much improved LUNGS: Respiratory rate increased decreased breath sounds. ABDOMEN: Soft, some bloating nontender, liver spleen not palpable, no masses palpable. PSYCH: Patient able to hold a simple conversation. EXTREMITIES: Decreased redness. Some superficial breakdown of skin. INVESTIGATIONS, reviewed in the clinical context: December 15: Potassium 3.4 creatinine 1.6 December 14: Potassium 3.6 BUN 31 creatine 2.01 TSH 3.6 Renal ultrasound: Right kidney absent. Left kidney cortical thinning. 2-D echocardiogram: EF 55-60% [id number] MR. White count 7.5 hemoglobin 14.2 platelets 204 potassium 4.2. 23 creatinine 1.5 to ProBNP 1220 EKG tracing personally reviewed by me-normal sinus rhythm Chest x-ray film personally reviewed by me-right basilar infiltrate Assessment and plan: -Possible acute congestive heart exacerbation. From diastolic dysfunction. EF 55-60%.: Better IV Lasix-discontinued yesterday. Strict I's and O's. Follow with cardiology. -Acute bilateral lower extremity cellulitis: Improving Silvadene with Kerlix and Kameron wrap. Change IV Unasyn to Keflex 250 mg every 6 for 15 tablets -Major cognitive impairment, late onset Alzheimer's -Hypothyroid Synthroid 12.5 g a day. -Hyperlipidemia Lipitor 10 mg a day -Anxiety Celexa - chronic kidney disease stage III, with right nephrectomy, and cortical thinning left kidney Follow with nephrology -History of right nephrectomy, right ureter removal from malignancy -DO NOT RESUSCITATE -Ilan [nephew]: POA Disposition: ECF Plan - Discharge Summary Discharge Rx Participant: Yes New Discharge Prescriptions: New Atorvastatin [Lipitor] 10 mg PO DAILY@0800 tab Acetaminophen Tab [Tylenol] 650 mg PO Q6HR PRN tab PRN Reason: Mild Pain Or Fever > 100.5 Furosemide [Lasix] 40 mg PO Q48H #1 tablet Pantoprazole [Protonix] 40 mg PO AC-BRKFST tab Cephalexin [Keflex] 250 mg PO Q6HR #15 cap Continue Nitroglycerin Sl Tabs [Nitrostat] 0.4 mg SUBLINGUAL Q5M PRN PRN Reason: Chest Pain Cholecalciferol [Vitamin D3 (25 Mcg = 1000 Iu)] 50 mcg PO DAILY Silver Sulfadiazine [SSD 1% Cream] 1 applic TOPICAL DAILY@0800 Probenecid 500 mg PO BID@799,1999 Levothyroxine Sodium [Synthroid] 12.5 mcg PO DAILY@0800 Doxycycline Hyclate 100 mg PO BID@799,1999 Melatonin 5 mg PO HS@1999 Donepezil [Aricept] 20 mg PO DAILY@0800 Cyanocobalamin (Vitamin B-12) [Vitamin B-12] 1,000 mcg PO DAILY@0800 Citalopram Hydrobromide [CeleXA] 20 mg PO DAILY@0800 Discontinued Simvastatin [Zocor] 20 mg PO DAILY@0800 Furosemide [Lasix] 20 mg PO DAILY@0800 Discharge Medication List Cholecalciferol [Vitamin D3 (25 Mcg = 1000 Iu)] 50 mcg PO DAILY 12/12/22 [History] Citalopram Hydrobromide [CeleXA] 20 mg PO DAILY@0800 12/12/22 [History] Cyanocobalamin (Vitamin B-12) [Vitamin B-12] 1,000 mcg PO DAILY@0800 12/12/22 [History] Donepezil [Aricept] 20 mg PO DAILY@0800 12/12/22 [History] Doxycycline Hyclate 100 mg PO BID@08,199912/12/22 [History] Levothyroxine Sodium [Synthroid] 12.5 mcg PO DAILY@0800 12/12/22 [History] Melatonin 5 mg PO HS@199912/12/22 [History] Nitroglycerin Sl Tabs [Nitrostat] 0.4 mg SUBLINGUAL Q5M PRN 12/12/22 [History] Probenecid 500 mg PO BID@08,199912/12/22 [History] Silver Sulfadiazine [SSD 1% Cream] 1 applic TOPICAL DAILY@0800 12/12/22 [History] Acetaminophen Tab [Tylenol] 650 mg PO Q6HR PRN tab 12/15/22 [Rx] Atorvastatin [Lipitor] 10 mg PO DAILY@0800 tab 12/15/22 [Rx] Cephalexin [Keflex] 250 mg PO Q6HR #15 cap 12/15/22 [Rx] Furosemide [Lasix] 40 mg PO Q48H #1 tablet 12/15/22 [Rx] Pantoprazole [Protonix] 40 mg PO AC-BRKFST tab 12/15/22 [Rx] Follow up Appointment(s)/Referral(s): Cami De Leon, [NON-STAFF] - As Needed None,Stated [REFERRING] - 1-2 days Activity/Diet/Wound Care/Special Instructions: Silvadene cream dressing with Kerlix and Kameron wrap daily
[2022-12-15 13:40] VITALS: BP 140/76; RESP 16; TEMP 98.6
== END 2022-12-15 15:50 | DRG 291 ==
LOC: EC 14:56 → 5NMEDONC 18:54 → 4SSUR 12-13 16:57
PROVIDERS: ADMIT Hospitalist; ATTEND Hospitalist
PROC: B246ZZ4 Ultrasonography of Right and Left Heart, Transesophageal (ICD-10-PCS; principal; 2022-12-13)
DX: I13.0 Hypertensive heart and chronic kidney disease with heart failure and stage 1 through stage 4 chronic kidney disease, or unspecified chronic kidney disease (principal); I50.33 Acute on chronic diastolic (congestive) heart failure; L03.115 Cellulitis of right lower limb; L03.116 Cellulitis of left lower limb; N17.9 Acute kidney failure, unspecified; Q60.0 Renal agenesis, unilateral; K80.10 Calculus of gallbladder with chronic cholecystitis without obstruction; F02.84 Dementia in other diseases classified elsewhere, unspecified severity, with anxiety; M10.9 Gout, unspecified; N18.31 Chronic kidney disease, stage 3a; N40.0 Benign prostatic hyperplasia without lower urinary tract symptoms; Z66 Do not resuscitate; E78.5 Hyperlipidemia, unspecified; G30.1 Alzheimer's disease with late onset; I27.20 Pulmonary hypertension, unspecified; I08.1 Rheumatic disorders of both mitral and tricuspid valves; E11.22 Type 2 diabetes mellitus with diabetic chronic kidney disease; E87.6 Hypokalemia; T50.2X5A Adverse effect of carbonic-anhydrase inhibitors, benzothiadiazides and other diuretics, initial encounter; N18.30 Chronic kidney disease, stage 3 unspecified; E03.9 Hypothyroidism, unspecified; F41.9 Anxiety disorder, unspecified; I87.2 Venous insufficiency (chronic) (peripheral); I87.8 Other specified disorders of veins; R01.1 Cardiac murmur, unspecified; F17.210 Nicotine dependence, cigarettes, uncomplicated; Z90.5 Acquired absence of kidney; Z85.54 Personal history of malignant neoplasm of ureter; X58.XXXA Exposure to other specified factors, initial encounter; Z79.890 Hormone replacement therapy; Z79.899 Other long term (current) drug therapy; Z85.51 Personal history of malignant neoplasm of bladder; Z85.528 Personal history of other malignant neoplasm of kidney; Z90.49 Acquired absence of other specified parts of digestive tract
CPT/HCPCS: 36415; 51702; 71046; 76770; 80048; 80053; 81003; 83735; 83880; 84443; 84484; 85025; 87040; 93005; 93306; 96365; 96372; 96375; 96376; 99285